=== PATIENT | female | born 1980 ===

== ENCOUNTER 2023-12-09 14:37 | Inpatient (IN) | payer OTHER, SELFPAY ==
[2023-12-08 21:32] VITALS: BP 108/80
--- NOTE | 2023-12-08 23:48 | ED.GENMED ---
History of Present Illness
General
Chief Complaint: Withdrawal Symptoms
Source: patient and family (Mother)
Exam Limitations: none
Time Seen by Provider: 12/08/23 22:56
Nursing documentation reviewed up to this point in time: agreed with
Travel History
Have you had any contact with someone who has COVID-19?: No
Do you have any symptoms of coronavirus? Fever > 100 degrees, chills, cough, shortness of breath, sore throat, loss of taste or smell, muscle aches, or headache?: No
History of Present Illness
History of Present Illness:
43-year-old female with a past medical history of opioid abuse who presents to the emergency department for evaluation of 'opioid withdrawal'--mother says that she brought patient here for rehab and to have her pelvis evaluated. Patient is an
extremely poor historian. Her mother�who I was able to speak with on the phone�does help with some collateral history (Mimi, ). [facility]�it sounds like she is currently homeless although it sounds like at some point
she may have been staying with her mother. It sounds like patient had some sort of an injury to her pelvis or hip that required surgery at [facility]--patient says that she thinks that this happened about a month ago but cannot tell me exactly what her
injury was or the specific type of surgery. She has a history of opioid abuse but apparently had been on methadone maintenance therapy at [address] in [place]. According the patient's mother, patient relapsed last week
and was on the street using fentanyl. Patient says that after that she had difficulty getting access to her methadone again and she cannot tell me exactly why. She says that she believes she is now going through opioid withdrawal. There was a
bizarre story in triage about patient being locked in a closet�when asked about this, the patient could not provide any clarity, she only tells me that she thinks she withdrawing. She tells me that her main withdrawal symptom is 'pain.' She feels
some mild nausea. She has not had any vomiting and she has been in the emergency room for over 2-1/2 hours. She has not had any diarrhea. She does not appear diaphoretic. She is actually sleeping and I had to shake her to wake her up when I
entered the room. Her mother says that the main concern in bring her to the hospital was #1 to have her pelvis evaluated because patient has been walking on it when she was supposed to rest after surgery; #2 mother was hoping that she could be
evaluated for potential placement in rehab.
Review of Systems
Review of Systems
All Other Systems: ROS reviewed and negative except as documented in HPI and ROS
Constitutional: Reports chills; Denies fever
EENT: Denies sore throat or runny nose
Respiratory: Denies cough or trouble breathing
ABD/GI: Reports nausea; Denies abdominal pain, vomiting or diarrhea
: Denies flank pain
Musculoskeletal: Reports muscle pain (Body aches); Denies neck pain
Neurological: Denies headache, weakness or numbness
Phy Exam
Physical Exam
Physical Exam:
General: Patient is sleeping in bed comfortably; I had to shake her awake to speak with her; she is oriented x 3, she appears disheveled but nontoxic
Head: Normocephalic, atraumatic
Eyes: Conjunctiva normal, EOMI; pupils midrange, equal round and reactive to light bilaterally
Nose: No rhinorrhea
Throat: Airway intact, handling secretions
Neck: Trachea midline
Lungs: Clear to auscultation bilaterally, no wheezing, rales, rhonchi
Heart: Tachycardia with regular rhythm, no murmurs, gallops, or rubs
Abd: Soft, non distended, nontender; she has a well-healed surgical scar in the suprapubic region
Neuro: No gross deficits
Skin: No piloerection
Extremities: No edema in extremities, equal pulses in all extremities
Scores
COW Clinical Opiate Withdrawal Scale
Resting Pulse Rate: 101-120
Sweating-over past 30min not from room temp or activity: Reports chills or flushing
Restlessness-observation during assessment: Able to sit still
Pupil Size: Pupils pinned or normal size for room light
Bone or Joint Aches: Patient reports severe diffuse aching of joints/muscles
Runny Nose or Tearing-not accounted for by cold/allergies: Not present
GI Upset-over last 30min: Nausea or loose stool
Tremor-observation of outstretched hands: No tremor
Yawning-observation during assessment: No yawning
Anxiety or Irritability: Pt so irritable/anxious that participation in assessment is difficult
Gooseflesh Skin: Skin is smooth
Score: 11
Withdrawal Severity: Mild Withdrawal, consider starting Suboxone
Heart Failure Risk
Heart Failure Risk Score: Not Applicable
Heart Score for Chest Pain Patients
STEMI patient?: Not applicable
Withdrawal Assessment of Alcohol
Withdrawal Assessment Completed?: Not applicable
Course
Orders/Labs/Results
Orders:
Orders
12/08/23 23:37
0.9% Sodium Chloride 1000 ml [Nss] 1,000 ml IV BOLUS
Ondansetron Injectable [Zofran] 4 mg IV NOW STA
12/08/23 23:42
Drug Screen, Urine [Urine Drug Abuse Screen] Urgent
Clonidine [Catapres] 0.1 mg PO NOW STA
Test Result ONCE
12/08/23 23:52
Complete Blood Count/With Diff Urgent
Comprehensive Metabolic Panel Urgent
HCG, Serum Qualitative Screen Urgent
12/09/23 00:00
Electrocardiogram (*1) Urgent
Reason for Study: QTc Monitoring
EKG- Treatment ONCE
CR Pelvis Comp Min 3 Views Urgent
Reason For Exam: recent sx, hip pain
12/09/23 00:40
Methadone [Dolophine] 30 mg PO NOW STA
12/09/23 02:32
Case Management Consult ONCE
Case Management Consult: Discharge Planning
Abnormal Lab Results
12/08/23
23:52
RBC 3.71 L 10^6/uL
(4.20-5.40)
Hgb 9.8 L g/dL
(12.0-16.0)
Hct 28.6 L %
(37.0-47.0)
MCV 77.1 L fL
(81.0-99.0)
MCH 26.4 L pg
(27.0-31.0)
RDW 14.7 H %
(11.5-14.5)
Potassium 3.4 L mmol/L
(3.5-5.1)
Creatinine 0.4 L mg/dL
(0.6-1.0)
Glucose 101 H mg/dl
(70-99)
AST 56 H U/L
(14-36)
Alkaline Phosphatase 145 H U/L
(38-126)
12/08/23 23:52
12/08/23 23:52
Vital Signs
Initial and Last Documented VS:
Initial Vital Signs
Temp Pulse Resp BP Pulse Ox
36.1 C 104 24 108/80 100
12/08/23 21:32 12/08/23 21:32 12/08/23 21:32 12/08/23 21:32 12/08/23 21:32
Last Documented Vital Signs
Temp Pulse Resp BP Pulse Ox
36.8 C 101 16 107/59 99
12/09/23 01:43 12/09/23 01:43 12/09/23 01:43 12/09/23 01:43 12/09/23 01:43
MDM/Problems Addressed
Differential Diagnosis Includes:
Opioid withdrawal, dehydration, postoperative pain/complication, malingering/drug-seeking behavior
MDM/Problems Addressed:
43-year-old female with history of opioid use presents to the emergency room mainly for evaluation for placement in rehab according to her mother, also requesting assessment of her pelvis after recent surgery and quicker than advised return to
activity. Patient tells me that she believes she is in opioid withdrawal�it sounds like she was on methadone and receiving at a clinic and then relapsed and was using fentanyl last week. Has not been able to get her methadone since and now she
says she is in withdrawal although she is not clearly exhibiting withdrawal syndrome�while she does have anxiety and restlessness in bed when awake, when left alone in the room she falls asleep comfortably. She does have tachycardia but again when
left alone in the room she falls asleep and heart rate returns to normal. She reports nausea but has not had any vomiting and is requesting food and drink. She has not had any diarrhea throughout her ED stay. She has no rhinorrhea. She has no
yawning. She has no piloerection. She does complain of pain all over and in fact when we wake her up, she immediately cries that she is in pain and that she needs medication.
I had a long discussion with her mother she says that she thinks patient needs rehab. This is a very difficult case; patient initially said she was interested in rehab and so I spoke with our [facility] associate who did an evaluation and patient
declined rehab. He says that he has seen her 4 times in the past and each time she has declined rehab. I had a long discussion with the patient to see how I can help her. We did do basic blood work which was largely unremarkable�she has mild
anemia mild hypokalemia. We did an x-ray of the pelvis which on my review shows intact hardware with no clear bony disruption. Her main concern is her methadone because she believes she is withdrawing and if she cannot had her methadone she wants
another opiate. I explained to the patient that unless we are able to confirm her dose of methadone our pharmacy cannot release the medication. I placed a call to her methadone clinic and was unable to get an answer x 3 attempts to confirm the
dose. I offered to treat her with Suboxone but patient refuses this�she says that she is allergic to it. I offered to provide her some Narcan to keep with her but she says she is allergic to it. For her pain I offered her Tylenol and ibuprofen or
Toradol and she tells me she is allergic to all these things. I spoke to our pharmacist about this difficult situation and apparently they are able to release a 30 mg dose of methadone without confirmation and so after discussion with patient we
will proceed with this. I also gave her a dose of clonidine. Initially planned to treat with Zofran but she has a borderline QTc on EKG and given that we are also giving her some methadone we will hold off on additional QT prolonging agents. Will
provide some IV hydration. Will monitor here in the emergency room and reassess after the above.
Clinical reassessment patient is sleeping comfortably in the bed is not in any distress at all. Her vital signs are normal. Continue to monitor.
Patient continues to rest comfortably in bed she is not exhibiting any signs of withdrawal at this point in time. I think she is medically stable to be discharged however she is homeless and she says that she does not have anywhere to go. Will
plan to observe in ED overnight and have nurse outreach case manager see her in the morning. She is medically stable for discharge. We provided her a take-home kit of Narcan.
Chronic conditions affecting care:
Opioid use
*Radiology
Radiology exam reviewed: preliminary read by ED provider
*Pulse Oximetry
Patient hypoxic: no
*EKG
Interpreted by ED Provider?: Yes
Heart Rate: 99
Rate: normal
Rhythm: sinus
[place]: normal axis
Interval: long QT (Slight prolonged QT interval)
QRS Pattern: normal QRS
Ischemia: non-specific ST changes
*Critical Care Note
Total Time (30-74mins, 75-104mins- exclusive of procedures): Not Applicable
Data Reviewed
Source: patient and family (Mother)
Patient Management
Social determinants of health affecting care: Living situation and Substance abuse
Discussion with other providers: Other (Spoke with KENNEDY)
ED Attending Note
-
Portions of this chart may have been created with voice recognition software.� Occasional wrong word or��sound alike� substitutions may have occurred due to the inherent limitations of voice recognition software.
Discharge Plan
Departure
Admit to doctor: FAWN TO SEE IN AM
Patient with high blood pressure during this ER visit?: No
Discharge Problem:
Opioid withdrawal, Anemia, Hypokalemia
Instructions: Drug Misuse and Addiction (DC)
Activity Restrictions/Additional Instructions:
Thank you for visiting the Emergency Department at [facility].
1. Please schedule a follow up appointment as directed. Call first thing tomorrow morning to make an appointment.
2. If indicated, please take your medications as instructed and indicated on discharge paperwork.
3. If any of your symptoms do not improve, or persist, or become more severe within 6-12 hours, please return to the emergency department for further care.
4. Please return to the emergency department if you develop a headache, neck pain/stiffness, fever greater than 100.4F, chest pain, shortness of breath, persistent nausea, vomiting, slurred speech, difficulty walking, numbness/tingling, weakness,
signs of infection or any other symptoms that are worrisome to you.
Please call [phone] if you have any questions.
Interventions
Interventions:
*Risk Screen - Suicide Last Done: 12/09/23 00:10
*General Assessment Last Done: 12/09/23 00:10
*Neglect/Abuse Screening Last Done: 12/09/23 00:10
*ED COVID-19 Vaccine History Last Done: 12/09/23 00:10
Discharge Date and Time
Print Language: MOSOTHO
[2023-12-08] MEDS: NSS 1000 IV (23:50)
[2023-12-08 23:59] LABS: % Basophils 0.5 % (0-2); % Eosinophils 3.1 % (0-6); % Immature Granulocytes 0.3 % (0-0.5); % Lymphocytes 30.2 % (20.5-51.1); % Monocytes 8.9 % (1.7-9.3); Absolute Eosinophils 0.2 10^3/uL (0-0.7); Absolute Lymphocytes 1.9 10^3/uL (1.2-3.4); Absolute Monocytes 0.6 10^3/uL (0.1-0.6); Absolute Neutrophils 3.5 10^3/uL (1.4-6.5); Hematocrit 28.6 % (37.0-47.0); Hemoglobin 9.8 g/dL (12.0-16.0); Mean Corp Hgb Conc. 34.3 g/dL (33.0-37.0); Mean Corpuscular Hgb 26.4 pg (27.0-31.0); Mean Corpuscular Volume 77.1 fL (81.0-99.0); Mean Platelet Volume 9.3 fL (7.4-10.4); Nucleated Red Blood Cells % 0 %; Platelet Count 363 10^3/uL (130-400); Red Blood Cell Count 3.71 10^6/uL (4.20-5.40); Red Cell Dist. Width 14.7 % (11.5-14.5); White Blood Cell Count 6.2 10^3/uL (4.8-10.8)
[2023-12-09] VITALS (14 sets, daily range): BP systolic 82–121; BP diastolic 43–78
[2023-12-09 00:09] LABS: HCG, Serum Qualitative Screen Negative
[2023-12-09 00:15] LABS: ALT (SGPT) 22 U/L (0-35); AST (SGOT) 56 U/L (14-36); Albumin 3.7 g/dl (3.5-5.0); Alkaline Phosphatase 145 U/L (38-126); Blood Urea Nitrogen 13 mg/dl (7-17); Calcium 9.4 mg/dl (8.4-10.2); Carbon Dioxide 24 mmol/L (22-30); Chloride 104 mmol/L (98-107); Glucose 101 mg/dl (70-99); Potassium 3.4 mmol/L (3.5-5.1); Sodium 138 mmol/L (135-145); Total Bilirubin 0.7 mg/dl (0.2-1.3); Total Protein 7.8 g/dl (6.3-8.2); eGFR > 60.00
[2023-12-09] MEDS: CATAPRES 0.100000000000000006 MG PO (00:56)
[2023-12-09] MEDS: DOLOPHINE 30 MG PO (01:02)
--- NOTE | 2023-12-09 09:45 | CM ---
Addendum entered by Sharyn Jones 12/09/23 15:21:
Patient also provided with information on shelters.
Addendum entered by Sharyn Jones 12/09/23 10:06:
residence manager spoke with [facility] and Julius from [facility] will meet with patient at 11am this morning.
Original Note:
Chart reviewed and casework manager met with patient, per patient she was brought to [place] by her mother who is requesting treatment, case management review treatment options with patient and referral to [facility] was initiated, patient was seen by
KENNEDY and patient initially refused treatment, casework manager met patient and patient is now agreeable to treatment, casework manager reached out to [facility].
Plan; Referral sent to [facility].
--- NOTE | 2023-12-09 11:42 | PHANOTE ---
Contacted [facility] [[address]] to obtain medication information. An authorization to release medical records form was faxed to [phone] to allow information to be released.
[2023-12-09 12:47] LABS: Amphetamines Positive (Negative)
[2023-12-09 12:48] LABS: Benzodiazepines Positive (Negative); Marijuana Positive (Negative); Methadone Positive (Negative); Methamphetamines Positive (Negative)
[2023-12-09 12:52] LABS: Barbiturates Negative (Negative); Buprenorphine Negative (Negative); Cocaine Negative (Negative); Opiates Negative (Negative); Phencyclidine Negative (Negative); Tricyclic Antidepressants Negative (Negative)
[2023-12-09 13:13] LABS: Fentanyl, Urine Positive (Negative)
--- NOTE | 2023-12-09 13:35 | PHANOTE ---
Fax received from the [facility] verifying that the patient received Methadone 190mg on 12/02/23 at 11:30am at the clinic.
--- NOTE | 2023-12-09 13:53 | HPS.HSE ---
Addendum entered and electronically signed by Gary Lemus MD 12/09/23 15:02:
I saw and examined the patient.
The STATION[employer]ER FIREMAN or PA's note was reviewed and I agree with the note.
Comment: 43-year-old female with IV drug user, anxiety, GERD, medical hernia, recent left acetabular fracture, T12 compression fracture came to the hospital for possibility of withdrawal. Patient is homeless and has not been able to take care of
herself. Patient was brought in by his mother. I tried calling mother over the phone however could not leave voicemail since it is full. Per patient she has been taking Klonopin along with fentanyl and other opioids no the street. She also goes
to methadone clinic in [facility] where she went 3 days ago. Patient was recently hospitalized at [facility] in September after a fall with left acetabular fracture. She underwent ORIF by orthopedics. Later on patient decided
to leave AGAINST MEDICAL ADVICE. Currently patient vitals does not show she is tachycardic. IV Ativan given in ED. Will start as needed Ativan for now. Confirm methadone. Consult psychiatry. Patient is now interested in going to drug rehab.
General: Well Developed, Well Nourished and No Apparent Distress
HEENT: NormoCephalic, Moist mucous membranes and Atraumatic
Respiratory: Clear
Cardiac: S1/S2 and Regular Rhythm; No Murmur or Rub
GI: Soft, Non Tender, Non Distended and Normal Bowel Sounds; No Organomegaly
Rectal: Deferred by Provider
Musculoskeletal: No Clubbing, No Cyanosis and No Edema
Skin: No Rash
Neuro: AO x 3 and Nonfocal/grossly intact
Psych: Calm
I spent a total of 77 minutes with the patient or on the floor. More than 50% of this time involved counseling and coordination of care.
Original Note:
Family Physician
-
Family Physician:
Chief Complaint
-
withdrawal
History of Present Illness
43 year old with past medical history for withdrawal seizure presented to us with left thigh pain, can't walk on her left leg since the surgery. she recently had left acetabular fracture, left sup/inf rami fracture/vertebral body compression
fracture and scalp laceration from a fall. she Underwent ORIF left acetabulum at [facility]. Patient denied any headache dizziness, fever. Patient is chills. Patient denied headache, dizziness, syncopal episode patient denied abdominal
pain, nausea vomiting diarrhea. She is denying dysuria, hematuria. Patient has history of drug abuse since age of 18. Recently she was on methadone maintenance therapy at [facility]. She was staying with her mother. She left the house as she
could not take the argument with her mother. She relapsed last week. She last took Benzo and fentanyl 2 days ago.
Medical History
Past Medical History
Past Medical History: Reports Other
Additional Past Medical History:
seizure
Past Surgical History: Reports Other
Additional Past Surgical History:
spinal surgery
let hip surgery
Social History
Tobacco: Smoker (5-6 ciggrettes daily)
Alcohol: None
Drug: IVDA
Living: Homeless
Family History
Family History: Not pertinent
Allergies / Home Medications
Allergies reflects when Allergies were last updated in [employer].
Home Medications with original date entered in [employer]
Allergy/Medication List:
Allergies
Allergy/AdvReac Type Severity Reaction Status Date / Time
No Known Allergies Allergy Verified 12/08/23 21:35
Home Medications
methadone 10 mg/mL injection solution 190 mg SC DAILY 12/09/23
Review of Systems
-
Constitutional: Reports Chills
EENT: Reports No Symptoms
Respiratory: Reports No Symptoms
Cardiac: Reports No Symptoms
Abdomen/GI: Reports No Symptoms
: Reports No Symptoms
Musculoskeletal: Reports Other (right thigh, hip pain)
Skin: Reports No Symptoms
Neurological: Reports No Symptoms
Endocrine: Reports No Symptoms
Hematologic/Lymphatic: Reports No Symptoms
Psych: Reports No Symptoms
Physical Exam
Vital Signs
Vital Signs
Temp Pulse Resp BP Pulse Ox
98.3 F 98 20 102/54 100
12/09/23 01:43 12/09/23 11:41 12/09/23 11:41 12/09/23 13:00 12/09/23 11:56
Physical Exam
General: Well Developed, Well Nourished and No Apparent Distress
HEENT: NormoCephalic, Moist mucous membranes and Atraumatic
Respiratory: Clear
Cardiac: S1/S2 and Regular Rhythm; No Murmur or Rub
GI: Soft, Non Tender, Non Distended and Normal Bowel Sounds; No Organomegaly
Rectal: Deferred by Provider
Musculoskeletal: No Clubbing, No Cyanosis and No Edema
Skin: No Rash
Neuro: AO x 3 and Nonfocal/grossly intact
Psych: Calm
Laboratory Results
-
12/08/23 23:52
12/08/23 23:52
Laboratory Results
Total Bilirubin 0.7 mg/dl (0.2-1.3) 12/08/23 23:52
AST 56 U/L (14-36) H 12/08/23 23:52
ALT 22 U/L (0-35) 12/08/23 23:52
Alkaline Phosphatase 145 U/L (38-126) H 12/08/23 23:52
Data Reviewed
-
Diagnostic Radiology: Report Reviewed by me
Lab Data: Labs Reviewed by me
Impression/Plan
-
# Benzodiazepine/opiate withdrawal
-Withdrawal protocol initiated
-methadone continued
-Psych consulted
# Anemia likely post op
-Hemoglobin 9.8
-No active bleeding
-obtain iron panel, B12, ferritin, TIBC
#left hip/thigh pain
#recent left acetabular fracture, left sup/inf rami fracture/vertebral body compression fracture and scalp laceration.
-Underwent ORIF left acetabulum
-lidocaine continued
-Tylenol prn for pain
-PT consulted
# Hypokalemia
-K3.4
-Oral KCl
#DVT Prophylaxis
-Lovenox
#CODE status
-full code
[2023-12-09] MEDS: ATIVAN 2 MG IV (14:00)
--- NOTE | 2023-12-09 15:02 | W.PN.UPDATE ---
Update Note
Progress Note Update
For billing purposes only
[2023-12-09 15:15] LABS: Iron 33 ug/dl (37-170); Percent Saturation 11 % (20-50); Total Iron Binding Capacity 292 ug/dl (265-497)
[2023-12-09 15:57] LABS: Ferritin 77.2 ng/ml (6.24-137)
[2023-12-09] MEDS: METHADONE 100 MG/10 ML 190 MG PO (16:10)
[2023-12-09] MEDS: KCL ELIXIR 40 MEQ PO (16:10)
[2023-12-09 16:29] LABS: Folate > 20.0 ng/ml (2.76-20); Vitamin B12 984 pg/ml (239-931)
--- NOTE | 2023-12-09 17:00 | PTCARENOTE ---
Patient arrived from ED on stretcher. While assisting patient with getting undressed and into a new gown, this RN discovered what appeared to be illicit drugs in a small ziplock baggie underneath patient's left breast. Immediately confiscated baggie
and notified Nurse Store Leader and Security.
Security to bedside to check patient's belongings.
--- NOTE | 2023-12-09 17:15 | CS.PSYCHR ---
Consult Summary - Psychiatry
-
Pt is 43 yo female with IV drug use, hx of withdrawal seizure, GERD, recent left acetabular fracture, T12 compression fracture, who was reportedly brought to ED by her mother for possibility of substance withdrawal. Patient is reportedly homeless
and stated she has been taking Klonopin along with fentanyl on the street. She goes to a methadone clinic in [facility] at '[address]', reportedly was there 3 days ago. Pt reportedly relapsed last week. UDS positive for
Methadone, Fentanyl, Methamphetamine/Amphetamine, Benzo, THC. Pt noted to be interested in drug rehab.
PMH: Patient was recently hospitalized at [facility] in September after a fall with left acetabular fracture. She underwent ORIF, then later left AMA, noted not able to bear weight on her left leg.
Substance Use: Hx of drug abuse since age of 18. Previously on Suboxone maintenance until Jul 2023. Recently on methadone maintenance therapy at [facility].
SH: homeless, was staying with her mother, left the house after an argument; relapsed last week.
MSE: lying on side on stretcher, limited interaction, unkempt, sedated, repeatedly nodding off. Pt states she is here due to withdrawal sx, denies other mental health concerns.
Imp: Opioid Use d/o, severe, relapse to Fentanyl despite Methadone maint tx
Methamphetamine, Benzo, MJ Use
Rec: agree with continuing on confirmed Methadone Maint dose for now, with Ativan 0.5 mg prn, monitoring for possible benzo withdrawal
referral to drug rehab when medically stable
will follow loosely
--- NOTE | 2023-12-09 18:15 | PTCARENOTE ---
At this time, unable to complete admission assessment. Patient lethargic, continues to fall back asleep while this RN is speaking to her. Multiple times to re-focus patient are unsuccessful.
[2023-12-09] MEDS: LIDOCAINE 4% PATCH 1 PATCH TOPICAL (18:17)
[2023-12-09] MEDS: NARCAN 0.0400000000000000008 MG IV (19:29)
--- NOTE | 2023-12-09 19:34 | W.PN.UPDATE ---
Update Note
Progress Note Update
Called to see patient post incident involving nursing finding an unknown substance in her bra after being transferred to the floor from her bed in ED. Police notified and substance taken by them to be identified. VSS but she appears very lethargic
although able to give me a long history of events prior to arrival here. Narcan ordered since substance is unknown. Assessment is ongoing. She is monitored on telemetry.
[2023-12-09] MEDS: NSS (PRESERVATIVE FREE) 0.25 ML IV (20:03)
[2023-12-09] MEDS: ATIVAN 0.5 MG IV (20:03)
--- NOTE | 2023-12-09 20:05 | PTCARENOTE ---
At change of shift, pt extremely lethargic and only opening eyes to pain stimuli. BP 100/65, HR 69, respirations 10-12, 96% on RA, afebrile. WALKER Castillo notified and asked to come to see pt. Pt now answering questions appropriately but still very
lethargic. WALKER Castillo ordered Narcan, given as ordered. Pt now screaming that she is in pain and states 'why did they narcan me?'. WALKER notified. PRN ativan given as ordered (see mar). Pt's BP 121/64, HR 89, 100% RA, respirations 16. Plan of care
ongoing.
[2023-12-10 03:00] VITALS: BP 105/64
--- NOTE | 2023-12-10 06:08 | PTCARENOTE ---
Addendum entered by Dayana Barajas RN 12/10/23 06:14:
no adverse reactions noted after narcan administration.
Original Note:
This RN woke pt up this AM to toilet her. Pt stated 'I'm fucking allergic to narcan' and 'don't you ever fucking narcan me again'. Pt stated 'Ill alejandro the balls off this hospital' and 'I don't know what you found but it wasn't mine'. Tech and this RN
attempted to toilet and clean pt up. Pt not steady on feet and unable to ambulate to bathroom. BSC used but pt refusing to urinate. Pt refused to clean self up or let staff clean her up. Pt very drowsy throughout this RN's shift. Bed alarm in place
and call quiles within reach. Plan of care ongoing.
[2023-12-10] MEDS: ATIVAN 0.5 MG IV (06:37)
[2023-12-10] MEDS: NSS (PRESERVATIVE FREE) 0.25 ML IV (06:37)
[2023-12-10 07:00] VITALS: BP 92/60
[2023-12-10] MEDS: LIDOCAINE 4% PATCH 1 PATCH TOPICAL (07:49)
[2023-12-10 08:56] LABS: Hematocrit 27.9 % (37.0-47.0); Hemoglobin 9.2 g/dL (12.0-16.0); Mean Corpuscular Hgb 26.4 pg (27.0-31.0); Mean Corpuscular Volume 80.2 fL (81.0-99.0); Mean Platelet Volume 9.3 fL (7.4-10.4); Platelet Count 367 10^3/uL (130-400); Red Blood Cell Count 3.48 10^6/uL (4.20-5.40); Red Cell Dist. Width 15.1 % (11.5-14.5); White Blood Cell Count 3.8 10^3/uL (4.8-10.8)
[2023-12-10 09:24] LABS: ALT (SGPT) 19 U/L (0-35); AST (SGOT) 35 U/L (14-36); Albumin 3.1 g/dl (3.5-5.0); Alkaline Phosphatase 127 U/L (38-126); Blood Urea Nitrogen 10 mg/dl (7-17); Calcium 9.1 mg/dl (8.4-10.2); Carbon Dioxide 27 mmol/L (22-30); Chloride 106 mmol/L (98-107); Direct Bilirubin 0.3 mg/dl (0.0-0.4); Glucose 92 mg/dl (70-99); Potassium 3.7 mmol/L (3.5-5.1); Sodium 139 mmol/L (135-145); Total Bilirubin 0.3 mg/dl (0.2-1.3); Total Protein 6.7 g/dl (6.3-8.2); eGFR > 60.00
[2023-12-10] MEDS: NSS 1000 IV (09:43)
[2023-12-10] MEDS: METHADONE 100 MG/10 ML 190 MG PO (10:45)
[2023-12-10 11:00] VITALS: BP 92/59
--- NOTE | 2023-12-10 12:34 | W.PN.HOSP.TC ---
Today's Communication/Plan
-
Monitor vital signs see plan
Continue to monitor for withdrawal; symptoms improved from what i can see. would need to wean benzos
PT/OT
Interested in going to drug rehab
Assessment / Plan
Assessment / Plan
General: Well Developed, Well Nourished and No Apparent Distress
HEENT: NormoCephalic, Moist mucous membranes and Atraumatic
Respiratory: Clear
Cardiac: S1/S2 and Regular Rhythm; No Murmur or Rub
GI: Soft, Non Tender, Non Distended and Normal Bowel Sounds; No Organomegaly
Musculoskeletal: No Clubbing, No Cyanosis and No Edema
Neuro: AO x 3 and Nonfocal/grossly intact
Psych: Calm
Multidrug use with abuse
Suspect benzodiazepine withdrawal
Possible opiate withdrawal
cw COWS protocol
ativan prn
methadone dose confirmed; cw methadone
Patient is interested in going to drug rehab.
Psych following
UDS positive for methadone, fentanyl, amphetamine, methamphetamine, benzodiazepine, marijuana
narcan prn
# Anemia; iron deficient
likely 2/2 malnutrition
-Hemoglobin 9.8
-No active bleeding
#left hip/thigh pain
#recent left acetabular fracture, left sup/inf rami fracture/vertebral body compression fracture and scalp laceration. was hospitalized at [facility]
-Underwent ORIF left acetabulum in september 2023
Patient to follow-up with orthopedics outpatient
records requested
-lidocaine continued
-Tylenol prn for pain
-PT consulted
# Hypokalemia
improved
#DVT Prophylaxis
-Lovenox
#CODE status
-full code
Anticipated Discharge: 24 - 48 hours
Subjective/Interval History
-
Date of Service: December 10, 2023
denies headache
Objective Data
-
Labs:
Laboratory Results
05/21/24
08:32
WBC 3.8 L
Hgb 9.2 L
Hct 27.9 L
Plt Count 367
Sodium 139
Potassium 3.7
Chloride 106
Carbon Dioxide 27
BUN 10
Creatinine 0.4 L
Glucose 92
Calcium 9.1
Total Bilirubin 0.3
AST 35
ALT 19
Alkaline Phosphatase 127 H
Vital Signs:
Vital Signs
Temp Pulse Resp BP Pulse Ox
98.6 F 89 18 92/59 95
12/10/23 11:00 12/10/23 11:00 12/10/23 11:00 12/10/23 11:00 12/10/23 11:00
I&O
12/09/23 12/10/23 12/11/23
06:59 06:59 06:59
Intake Total 480 / 480
Output Total 0 / 0
Balance 480 / 480
[2023-12-10] MEDS: MIRALAX 17 GRAMS PO (13:02)
[2023-12-10] MEDS: FEOSOL 325 MG PO (13:02)
--- NOTE | 2023-12-10 14:22 | W.PN.UPDATE ---
Update Note
Progress Note Update
Pt seen, lying on side. Awake, alert, limited interaction. Pt denies depression or other active mental health issue. She c/o benzo withdrawal (shakes), gives vague history of taking Klonopin/ or 'bars' (Xanax?) obtained on the street once per
day. Reviewed with nursing staff, who reports pt's BP and pulse are actually low-to- normal. Pt has prn order for Ativan 0.5 mg, has received twice. Pt has been continued on confirmed Methadone Maint dose 190 mg, from Methadone program in
[place].
Imp: Opioid Use d/o, severe, on Methadone maint tx. Pt missed doses and relapsed on Fentanyl
Methamphetamine, Benzo, MJ Use
Rec: agree with continuing on confirmed Methadone Maint dose, with Ativan 0.5 mg prn, monitoring for possible benzo withdrawal
Pt appears stable to return to Outpatient Methadone Maint Program. Residential drug rehab may be an option, depending on funding and availability of the limited facilities that accept patients on Methadone
Psychiatry will sign off. Please re-consult for any new or immediate concerns
--- NOTE | 2023-12-10 14:47 | CM ---
Case management following for d/c planning
Pt sleeping, difficult to arouse
Falling asleep while speaking with CM
Would like to go to Rehab
Called [facility] [phone] - spoke with Julius
Clinicals faxed to [phone]
Plan - anticipate inpatient drug rehab when medically stable
[2023-12-10 15:34] VITALS: BP 108/70
[2023-12-10 19:39] VITALS: BP 116/67
[2023-12-10 23:06] VITALS: BP 114/77
[2023-12-11] VITALS (8 sets, daily range): BP systolic 92–128; BP diastolic 53–84; PULSE 75–78; O2SAT 93–95
--- NOTE | 2023-12-11 04:03 | PTCARENOTE ---
Patient lethargic, only wakes when her vitals are taken and at that time continually asks for Ativan. This RN explained that since patient is lethargic and has a lower BP it is contraindicated at this time. Patient showing no signs of withdrawal
other then being agitated and cursing at staff. Heart rate 70, BP 92/59. No sweating observed. Patient angry that she is not getting Ativan and yells 'fuck you, you are gonna let me fucking suffer'. Patient yells 'I am in pain'. This RN offered
patient Tylenol and patient became irate, stating that the Tylenol 'won't do shit dumb ass'. At that time this RN left patients room and notified WALKER Bonilla of above. Per WALKER patient can not have Ativan with her BP being low and with her
mentation. Patient to receive scheduled Methadone 190mg at 0800. Care ongoing.
[2023-12-11] MEDS: LIDOCAINE 4% PATCH 1 PATCH TOPICAL (08:27)
[2023-12-11] MEDS: FEOSOL 325 MG PO (08:27)
[2023-12-11] MEDS: METHADONE 100 MG/10 ML 190 MG PO (08:28)
[2023-12-11] MEDS: MIRALAX 17 GRAMS PO (08:28)
--- NOTE | 2023-12-11 09:59 | PHANOTE ---
Contacted [facility] [address] [address] at [phone] and spoke to LOLY Avelar to request methadone dosing history at the request of Dr Lemus. Required another patient consent be sent. Patient signed consent today and faxed to
[phone].
[2023-12-11 10:08] LABS: % Basophils 2.1 % (0-2); % Eosinophils 9.9 % (0-6); % Lymphocytes 40.6 % (20.5-51.1); % Monocytes 12.4 % (1.7-9.3); Absolute Basophils 0.1 10^3/uL (0-0.2); Absolute Eosinophils 0.3 10^3/uL (0-0.7); Absolute Lymphocytes 1.2 10^3/uL (1.2-3.4); Absolute Monocytes 0.4 10^3/uL (0.1-0.6); Hematocrit 30.1 % (37.0-47.0); Hemoglobin 9.8 g/dL (12.0-16.0); Mean Corp Hgb Conc. 32.6 g/dL (33.0-37.0); Mean Corpuscular Hgb 25.9 pg (27.0-31.0); Mean Corpuscular Volume 79.4 fL (81.0-99.0); Nucleated Red Blood Cells % 0 %; Red Blood Cell Count 3.79 10^6/uL (4.20-5.40); Red Cell Dist. Width 14.7 % (11.5-14.5); White Blood Cell Count 2.8 10^3/uL (4.8-10.8)
[2023-12-11 10:35] LABS: ALT (SGPT) 24 U/L (0-35); AST (SGOT) 37 U/L (14-36); Albumin 3.1 g/dl (3.5-5.0); Alkaline Phosphatase 118 U/L (38-126); Blood Urea Nitrogen 9 mg/dl (7-17); Calcium 8.8 mg/dl (8.4-10.2); Carbon Dioxide 31 mmol/L (22-30); Chloride 102 mmol/L (98-107); Estimated Creatinine Clearance 98 ml/min; Glucose 107 mg/dl (70-99); Potassium 4.3 mmol/L (3.5-5.1); Sodium 139 mmol/L (135-145); Total Bilirubin 0.2 mg/dl (0.2-1.3); Total Protein 6.8 g/dl (6.3-8.2); eGFR > 60.00
[2023-12-11 12:25] LABS: Mean Platelet Volume 9.8 fL (7.4-10.4)
[2023-12-11 12:26] LABS: Platelet Count 280 10^3/uL (130-400)
--- NOTE | 2023-12-11 12:31 | W.PN.HOSP.TC ---
Today's Communication/Plan
-
monitor vitals
see plan
monitor for withdrawal
dispo planning; would need rehab
methadone; might need to lower dose. awaiting outpatient clinic records per pharmacy
Assessment / Plan
Assessment / Plan
General: Well Developed, Well Nourished and No Apparent Distress
HEENT: NormoCephalic, Moist mucous membranes and Atraumatic
Respiratory: Clear
Cardiac: S1/S2 and Regular Rhythm; No Murmur or Rub
GI: Soft, Non Tender, Non Distended and Normal Bowel Sounds; No Organomegaly
Musculoskeletal: No Edema
Neuro: AO x 3 and Nonfocal/grossly intact,lethargic at times
Psych: Calm
Multidrug use with abuse
Suspect benzodiazepine withdrawal
Possible opiate withdrawal on admission now on methadone
cw COWS protocol
ativan prn; hold for sedation and only use if patient is actively withdrawing
methadone dose confirmed; cw methadone. Pharmacy assistance to find out when her methadone was increased to 190. Multiple instances staff has noted patient too sedated or lethargic at times. Would need psych assistance to see if we need to wean her
methadone if this dose is recently increased
Patient is interested in going to drug rehab.
Psych following
UDS positive for methadone, fentanyl, amphetamine, methamphetamine, benzodiazepine, marijuana
narcan prn
# Anemia; iron deficient
likely 2/2 malnutrition
-Hemoglobin 9.8
-No active bleeding
#left hip/thigh pain
#recent left acetabular fracture, left sup/inf rami fracture/vertebral body compression fracture and scalp laceration. [facility]
-Underwent ORIF left acetabulum in september 2023
Patient to follow-up with orthopedics outpatient
records requested
-lidocaine continued
-Tylenol prn for pain
-PT consulted
# Hypokalemia
improved
#DVT Prophylaxis
-Lovenox
#CODE status
-full code
I spent a total of 52 minutes with the patient or on the floor. More than 50% of this time involved counseling and coordination of care.
Anticipated Discharge: Within 24 hours
Subjective/Interval History
-
Date of Service: December 11, 2023
lethargic at times
Objective Data
-
Labs:
Laboratory Results
12/11/23
09:51
WBC 2.8 L
Hgb 9.8 L
Hct 30.1 L
Plt Count 280 D
Sodium 139
Potassium 4.3
Chloride 102
Carbon Dioxide 31 H
BUN 9
Creatinine 0.4 L
Glucose 107 H
Calcium 8.8
Total Bilirubin 0.2
AST 37 H
ALT 24
Alkaline Phosphatase 118
Vital Signs:
Vital Signs
Temp Pulse Resp BP Pulse Ox
97.7 F 76 16 122/84 99
12/11/23 11:25 12/11/23 11:25 12/11/23 11:25 12/11/23 11:25 12/11/23 11:25
I&O
12/10/23 12/11/23 12/12/23
06:59 06:59 06:59
Intake Total 480 / 480 482 / 482
Output Total 0 / 0
Balance 480 / 480 482 / 482
--- NOTE | 2023-12-11 13:54 | CM ---
Case management following for d/c planning
Called [facility] [phone] - spoke with Julius
Julius reports he will be coming to hospital today to speak with pt and discuss treatment options/inpatient rehab with her
Requested PT/OT notes. Clinicals faxed to [phone]
Plan - anticipate transfer to inpatient drug rehab, when accepted and medically ready
[2023-12-11] MEDS: ATIVAN 0.5 MG IV (20:20)
[2023-12-11] MEDS: NSS (PRESERVATIVE FREE) 0.25 ML IV (20:21)
[2023-12-12] VITALS (8 sets, daily range): BP systolic 100–117; BP diastolic 53–76; PULSE 76; O2SAT 95
[2023-12-12] MEDS: ATIVAN 0.5 MG IV ×2 (01:31→10:04)
[2023-12-12] MEDS: NSS (PRESERVATIVE FREE) 0.25 ML IV (01:32)
[2023-12-12] MEDS: FEOSOL 325 MG PO (08:04)
[2023-12-12] MEDS: MIRALAX 17 GRAMS PO (08:04)
[2023-12-12] MEDS: METHADONE 100 MG/10 ML PO ×2 (08:04→12:20)
[2023-12-12] MEDS: LIDOCAINE 4% PATCH 1 PATCH TOPICAL (08:05)
[2023-12-12 11:26] LABS: % Basophils 1.2 % (0-2); % Eosinophils 12.5 % (0-6); % Immature Granulocytes 0.3 % (0-0.5); % Lymphocytes 40.9 % (20.5-51.1); % Monocytes 12.5 % (1.7-9.3); % Neutrophils 32.6 % (42.2-75.2); Absolute Eosinophils 0.4 10^3/uL (0-0.7); Absolute Lymphocytes 1.4 10^3/uL (1.2-3.4); Absolute Monocytes 0.4 10^3/uL (0.1-0.6); Absolute Neutrophils 1.1 10^3/uL (1.4-6.5); Hematocrit 31.2 % (37.0-47.0); Hemoglobin 9.7 g/dL (12.0-16.0); Mean Corp Hgb Conc. 31.1 g/dL (33.0-37.0); Mean Corpuscular Hgb 26.1 pg (27.0-31.0); Mean Corpuscular Volume 83.9 fL (81.0-99.0); Mean Platelet Volume 9.4 fL (7.4-10.4); Nucleated Red Blood Cells % 0 %; Platelet Count 360 10^3/uL (130-400); Red Blood Cell Count 3.72 10^6/uL (4.20-5.40); Red Cell Dist. Width 14.8 % (11.5-14.5); White Blood Cell Count 3.4 10^3/uL (4.8-10.8)
[2023-12-12 11:37] LABS: ALT (SGPT) 22 U/L (0-35); AST (SGOT) 31 U/L (14-36); Albumin 3.4 g/dl (3.5-5.0); Alkaline Phosphatase 128 U/L (38-126); Blood Urea Nitrogen 11 mg/dl (7-17); Calcium 9.4 mg/dl (8.4-10.2); Carbon Dioxide 30 mmol/L (22-30); Chloride 99 mmol/L (98-107); Estimated Creatinine Clearance 98 ml/min; Glucose 101 mg/dl (70-99); Potassium 4.4 mmol/L (3.5-5.1); Sodium 137 mmol/L (135-145); Total Bilirubin 0.2 mg/dl (0.2-1.3); Total Protein 7.3 g/dl (6.3-8.2); eGFR > 60.00
--- NOTE | 2023-12-12 12:18 | PTCARENOTE ---
Pt due for 90mg methadone. At this moment, patient appearing sedated, opens eyes to tactile stimulation but quickly closes after, sleeping heavily. VS checked and stable. MD notified of sedation and holding methadone dose. Pt arose to painful
stimulation calmly asking to order lunch and watch a movie.
--- NOTE | 2023-12-12 13:13 | W.PN.HOSP.TC ---
Today's Communication/Plan
-
monitor vitals
see plan
dc IV ativan; switch to PO only if needed
monitor on changed methadone regimen
dc in next 24hrs if stable
Assessment / Plan
Assessment / Plan
General: Well Developed, Well Nourished and No Apparent Distress
HEENT: NormoCephalic, Moist mucous membranes and Atraumatic
Respiratory: Clear
Cardiac: S1/S2 and Regular Rhythm; No Murmur or Rub
GI: Soft, Non Tender, Non Distended and Normal Bowel Sounds; No Organomegaly
Musculoskeletal: No Edema
Neuro: AO x 3 and Nonfocal/grossly intact,lethargic at times
Psych: Calm
Multidrug use with abuse
Suspect benzodiazepine withdrawal
Possible opiate withdrawal on admission now on methadone
cw COWS protocol
ativan prn; hold for sedation and only use if patient is actively withdrawing
methadone dose confirmed; cw methadone. Pharmacy assistance to find out when her methadone was increased to 190. Multiple instances staff has noted patient too sedated or lethargic at times. Would need psych assistance to see if we need to wean her
methadone if this dose is recently increased
spoke with pharmacy and psych. Methadone now 100mg in am and 90mg in afternoon (only if patient is not sedated)
Patient is interested in going to drug rehab.
Psych following
UDS positive for methadone, fentanyl, amphetamine, methamphetamine, benzodiazepine, marijuana
narcan prn
# Anemia; iron deficient
likely 2/2 malnutrition
-Hemoglobin 9.7
-No active bleeding
#left hip/thigh pain
#recent left acetabular fracture, left sup/inf rami fracture/vertebral body compression fracture and scalp laceration. was hospitalized at [facility]
-Underwent ORIF left acetabulum in september 2023
Patient to follow-up with orthopedics outpatient
records requested
-lidocaine continued
-Tylenol prn for pain
-PT following rec SNF; patient refusing
patient is now WBAT
# Hypokalemia
improved
#DVT Prophylaxis
-Lovenox
#CODE status
-full code
Anticipated Discharge: Within 24 hours
Subjective/Interval History
-
Date of Service: December 12, 2023
denies nausea
Objective Data
-
Labs:
Laboratory Results
12/12/23
10:53
WBC 3.4 L
Hgb 9.7 L
Hct 31.2 L
Plt Count 360 D
Sodium 137
Potassium 4.4
Chloride 99
Carbon Dioxide 30
BUN 11
Creatinine 0.5 L
Glucose 101 H
Calcium 9.4
Total Bilirubin 0.2
AST 31
ALT 22
Alkaline Phosphatase 128 H
Vital Signs:
Vital Signs
Temp Pulse Resp BP Pulse Ox
98.0 F 78 14 108/71 99
12/12/23 11:00 12/12/23 12:18 12/12/23 12:18 12/12/23 12:18 12/12/23 12:18
I&O
12/11/23 12/12/23 12/13/23
06:59 06:59 06:59
Intake Total 482 / 482 1080 / 1080
Output Total 500 / 500
Balance 482 / 482 580 / 580
--- NOTE | 2023-12-12 14:43 | CM ---
sales and production manager following for d/c planning
Called Julius from [facility] for updates regarding placement - LM on VM
Waiting for return call
Plan - anticipate inpatient rehab when medically ready
--- NOTE | 2023-12-12 15:16 | PN.CDI ---
CDI
- -
CDI:
Physician Documentation Request
Admit Date: 12/09/23 14:37
Dear Doctor Allan,
Clinical Indicators:
Patient admitted with suspected benzodiazepine withdrawal.
Home medications include methadone 190 mg SC daily
12/11 PN, 'Multidrug use with abuse -Possible opiate withdrawal on admission now on methadone'
Please specify the pattern of opiate use:
Abuse with dependence
Abuse without dependence
Other, please specify
Use of terms such as suspected, likely, concern for, or probable (associated with a specific diagnosis that is being evaluated, monitored, or treated as if it exists) are acceptable and can be coded in the inpatient setting, when documented at the
time of discharge.
Thank you,
WAN Gillespie RN
CDI Specialist
available via tiger text
Please use your independent medical judgment in providing your response.
[2023-12-12] MEDS: ATIVAN 0.5 MG PO (18:30)
[2023-12-13] VITALS (7 sets, daily range): BP systolic 90–121; BP diastolic 57–69; PULSE 71; O2SAT 98
[2023-12-13] MEDS: ATIVAN 0.5 MG PO ×4 (02:30→20:39)
[2023-12-13] MEDS: METHADONE 100 MG/10 ML PO (08:16)
[2023-12-13] MEDS: FEOSOL 325 MG PO (08:17)
[2023-12-13] MEDS: MIRALAX 17 GRAMS PO (08:17)
[2023-12-13] MEDS: LIDOCAINE 4% PATCH 1 PATCH TOPICAL (08:17)
[2023-12-13] MEDS: TYLENOL 650 MG PO (08:24)
--- NOTE | 2023-12-13 10:30 | CM ---
Addendum entered by Ai Juan 12/13/23 15:55:
Spoke with Julius from [facility] - will send updated PT/OT notes - pt would need to be independent to be accepted at rehab
Clinicals faxed to [phone]
Original Note:
Case management following for d/c planning
Methadone dose changed
Spoke with pt - more alert - expressing desire to go to rehab to 'get and feel better'
Called [facility] [phone] - spoke with account services representative - Julius will be in office and will return call this PM
Plan - anticipate inpatient rehab when medically stable
--- NOTE | 2023-12-13 11:59 | W.PN.HOSP.TC ---
Today's Communication/Plan
-
monitor vitals
see plan
cw methadone
change ativan to PO as needed
dc planning
Assessment / Plan
Assessment / Plan
General: Well Developed, Well Nourished and No Apparent Distress
HEENT: NormoCephalic, Moist mucous membranes and Atraumatic
Respiratory: Clear
Cardiac: S1/S2 and Regular Rhythm; No Murmur or Rub
GI: Soft, Non Tender, Non Distended and Normal Bowel Sounds
Musculoskeletal: No Edema
Neuro: AO x 3 and Nonfocal/grossly intact,lethargic at times
Psych: Calm
Multidrug use with abuse
Opioid use with abuse and dependance
Suspect benzodiazepine withdrawal; now resolved
Possible opiate withdrawal on admission now on methadone
cw COWS protocol
ativan prn; hold for sedation and only use if patient is actively withdrawing
methadone dose confirmed; cw methadone. Pharmacy assistance to find out when her methadone was increased to 190. Multiple instances staff has noted patient too sedated or lethargic at times. Would need psych assistance to see if we need to wean her
methadone if this dose is recently increased
spoke with pharmacy and psych. Methadone now 100mg in am and 90mg in afternoon (only if patient is not sedated)
Patient is interested in going to drug rehab.
Psych following
UDS positive for methadone, fentanyl, amphetamine, methamphetamine, benzodiazepine, marijuana
narcan prn
Patient is not in benzodiazepine withdrawal as there are no signs of it. Will change Ativan to oral every 12 hours as needed for anxiety however hold for sedation.
# Anemia; iron deficient
likely 2/2 malnutrition
-Hemoglobin 9.7, labs pending for today
-No active bleeding
#left hip/thigh pain
#recent left acetabular fracture, left sup/inf rami fracture/vertebral body compression fracture and scalp laceration. was hospitalized at [facility]
-Underwent ORIF left acetabulum in september 2023
Patient to follow-up with orthopedics outpatient
records requested
-lidocaine continued
-Tylenol prn for pain
-PT following rec SNF; patient refusing
patient is now WBAT
xray with posttraumatic and post operative changes. No clear acute fracture.
# Hypokalemia
improved
#DVT Prophylaxis
-Lovenox
#CODE status
-full code
Anticipated Discharge: Within 24 hours
Subjective/Interval History
-
Date of Service: December 13, 2023
denies nausea
Objective Data
-
Labs:
Laboratory Results
12/13/23
06:00
WBC Pending
Hgb Pending
Hct Pending
Plt Count Pending
Sodium Pending
Potassium Pending
Chloride Pending
Carbon Dioxide Pending
BUN Pending
Creatinine Pending
Glucose Pending
Calcium Pending
Total Bilirubin Pending
AST Pending
ALT Pending
Alkaline Phosphatase Pending
Vital Signs:
Vital Signs
Temp Pulse Resp BP Pulse Ox
98.3 F 73 16 105/65 99
12/13/23 11:11 12/13/23 11:11 12/13/23 11:11 12/13/23 11:11 12/13/23 11:11
I&O
12/12/23 12/13/23 12/14/23
06:59 06:59 06:59
Intake Total 1080 / 1080 960 / 960
Output Total 500 / 500
Balance 580 / 580 960 / 960
[2023-12-13] MEDS: METHADONE 100 MG/10 ML 90 MG PO (12:02)
[2023-12-13 19:21] LABS: % Basophils 0.7 % (0-2); % Eosinophils 9.1 % (0-6); % Immature Granulocytes 0.2 % (0-0.5); % Lymphocytes 48.6 % (20.5-51.1); % Monocytes 10.6 % (1.7-9.3); % Neutrophils 30.8 % (42.2-75.2); Absolute Eosinophils 0.4 10^3/uL (0-0.7); Absolute Lymphocytes 2.2 10^3/uL (1.2-3.4); Absolute Monocytes 0.5 10^3/uL (0.1-0.6); Absolute Neutrophils 1.4 10^3/uL (1.4-6.5); Hematocrit 32.1 % (37.0-47.0); Hemoglobin 10.4 g/dL (12.0-16.0); Mean Corp Hgb Conc. 32.4 g/dL (33.0-37.0); Mean Corpuscular Hgb 26.1 pg (27.0-31.0); Mean Corpuscular Volume 80.5 fL (81.0-99.0); Mean Platelet Volume 8.9 fL (7.4-10.4); Nucleated Red Blood Cells % 0 %; Platelet Count 403 10^3/uL (130-400); Red Blood Cell Count 3.99 10^6/uL (4.20-5.40); Red Cell Dist. Width 14.7 % (11.5-14.5); White Blood Cell Count 4.5 10^3/uL (4.8-10.8)
[2023-12-13 19:46] LABS: ALT (SGPT) 21 U/L (0-35); AST (SGOT) 24 U/L (14-36); Albumin 3.8 g/dl (3.5-5.0); Alkaline Phosphatase 137 U/L (38-126); Blood Urea Nitrogen 12 mg/dl (7-17); Calcium 9.4 mg/dl (8.4-10.2); Carbon Dioxide 32 mmol/L (22-30); Estimated Creatinine Clearance 98 ml/min; Glucose 94 mg/dl (70-99); Total Bilirubin 0.2 mg/dl (0.2-1.3); eGFR > 60.00
[2023-12-13 20:17] LABS: Chloride 98 mmol/L (98-107); Potassium 4.3 mmol/L (3.5-5.1); Sodium 138 mmol/L (135-145)
[2023-12-13] MEDS: MELATONIN 3 MG PO (20:48)
[2023-12-14 03:27] VITALS: BP 108/67
[2023-12-14 07:15] VITALS: BP 87/56
[2023-12-14] MEDS: LIDOCAINE 4% PATCH 1 PATCH TOPICAL (07:51)
[2023-12-14] MEDS: FEOSOL 325 MG PO (07:51)
[2023-12-14] MEDS: MIRALAX 17 GRAMS PO (07:52)
[2023-12-14] MEDS: METHADONE 100 MG/10 ML PO (07:55)
[2023-12-14] MEDS: ATIVAN 0.5 MG PO ×2 (09:30→21:43)
[2023-12-14 09:34] LABS: % Basophils 0.7 % (0-2); % Eosinophils 9.5 % (0-6); % Immature Granulocytes 0.2 % (0-0.5); % Lymphocytes 43.4 % (20.5-51.1); % Monocytes 10.4 % (1.7-9.3); % Neutrophils 35.8 % (42.2-75.2); Absolute Eosinophils 0.4 10^3/uL (0-0.7); Absolute Monocytes 0.5 10^3/uL (0.1-0.6); Absolute Neutrophils 1.6 10^3/uL (1.4-6.5); Hematocrit 30.7 % (37.0-47.0); Mean Corp Hgb Conc. 32.6 g/dL (33.0-37.0); Mean Corpuscular Hgb 26.2 pg (27.0-31.0); Mean Corpuscular Volume 80.6 fL (81.0-99.0); Mean Platelet Volume 9.1 fL (7.4-10.4); Nucleated Red Blood Cells % 0 %; Platelet Count 385 10^3/uL (130-400); Red Blood Cell Count 3.81 10^6/uL (4.20-5.40); Red Cell Dist. Width 14.7 % (11.5-14.5); White Blood Cell Count 4.5 10^3/uL (4.8-10.8)
[2023-12-14 09:52] LABS: ALT (SGPT) 17 U/L (0-35); AST (SGOT) 22 U/L (14-36); Albumin 3.7 g/dl (3.5-5.0); Alkaline Phosphatase 130 U/L (38-126); Blood Urea Nitrogen 15 mg/dl (7-17); Calcium 9.7 mg/dl (8.4-10.2); Carbon Dioxide 28 mmol/L (22-30); Chloride 99 mmol/L (98-107); Estimated Creatinine Clearance 98 ml/min; Glucose 100 mg/dl (70-99); Potassium 4.6 mmol/L (3.5-5.1); Sodium 136 mmol/L (135-145); Total Bilirubin 0.3 mg/dl (0.2-1.3); Total Protein 7.8 g/dl (6.3-8.2); eGFR > 60.00
[2023-12-14 11:06] VITALS: BP 109/63
[2023-12-14] MEDS: METHADONE 100 MG/10 ML 90 MG PO (11:55)
--- NOTE | 2023-12-14 12:08 | W.PN.HOSP.TC ---
Today's Communication/Plan
-
monitor vitals
see plan
cw methadone
ativan PO prn
dispo planning
Assessment / Plan
Assessment / Plan
General: Well Developed, Well Nourished and No Apparent Distress
HEENT: NormoCephalic, Moist mucous membranes and Atraumatic
Respiratory: Clear
Cardiac: S1/S2 and Regular Rhythm; No Murmur or Rub
GI: Soft, Non Tender, Non Distended and Normal Bowel Sounds
Musculoskeletal: No Edema
Neuro: AO x 3 and Nonfocal/grossly intact,lethargic at times
Psych: Calm
Multidrug use with abuse
Opioid use with abuse and dependance
Suspect benzodiazepine withdrawal; now resolved
Possible opiate withdrawal on admission now on methadone
cw COWS protocol
ativan prn; hold for sedation and only use if patient is actively withdrawing
methadone dose confirmed; cw methadone. Pharmacy assistance to find out when her methadone was increased to 190. Multiple instances staff has noted patient too sedated or lethargic at times. Would need psych assistance to see if we need to wean her
methadone if this dose is recently increased
spoke with pharmacy and psych. Methadone now 100mg in am and 90mg in afternoon (only if patient is not sedated)
Patient is interested in going to drug rehab.
Psych following
UDS positive for methadone, fentanyl, amphetamine, methamphetamine, benzodiazepine, marijuana
narcan prn
Patient is not in benzodiazepine withdrawal as there are no signs of it. Will change Ativan to oral every 12 hours as needed for anxiety however hold for sedation.
# Anemia; iron deficient
likely 2/2 malnutrition
-Hemoglobin 10, labs pending for today
-No active bleeding
#left hip/thigh pain
#recent left acetabular fracture, left sup/inf rami fracture/vertebral body compression fracture and scalp laceration. was hospitalized at [facility]
-Underwent ORIF left acetabulum in september 2023
Patient to follow-up with orthopedics outpatient
records requested
-lidocaine continued
-Tylenol prn for pain
-PT following rec SNF; patient refusing
patient is now WBAT
xray with posttraumatic and post operative changes. No clear acute fracture.
# Hypokalemia
improved
#DVT Prophylaxis
-Lovenox
#CODE status
-full code
Per special education case manager, patient needs to be independent for the drug rehab. Patient is claiming that she is independently walking with a walker to the bathroom
Anticipated Discharge: Within 24 hours
Subjective/Interval History
-
Date of Service: December 14, 2023
denies nausea
Objective Data
-
Labs:
Laboratory Results
12/14/23
09:05
WBC 4.5 L
Hgb 10.0 L
Hct 30.7 L
Plt Count 385
Sodium 136
Potassium 4.6
Chloride 99
Carbon Dioxide 28
BUN 15
Creatinine 0.5 L
Glucose 100 H
Calcium 9.7
Total Bilirubin 0.3
AST 22
ALT 17
Alkaline Phosphatase 130 H
Vital Signs:
Vital Signs
Temp Pulse Resp BP Pulse Ox
98.0 F 72 17 109/63 95
12/14/23 11:06 12/14/23 11:06 12/14/23 11:06 12/14/23 11:06 12/14/23 11:06
I&O
12/13/23 12/14/23 12/15/23
06:59 06:59 06:59
Intake Total 960 / 960 1200 / 1200
Balance 960 / 960 1200 / 1200
[2023-12-14 15:28] VITALS: BP 110/66
[2023-12-14 19:53] VITALS: BP 96/58
[2023-12-14] MEDS: MELATONIN 3 MG PO (21:43)
[2023-12-14 23:23] VITALS: BP 96/63
[2023-12-15] VITALS (7 sets, daily range): BP systolic 94–132; BP diastolic 47–64; PULSE 82
[2023-12-15 05:29] LABS: % Eosinophils 8.3 % (0-6); % Immature Granulocytes 0.4 % (0-0.5); % Lymphocytes 46.4 % (20.5-51.1); % Monocytes 11.9 % (1.7-9.3); Absolute Basophils 0.1 10^3/uL (0-0.2); Absolute Eosinophils 0.4 10^3/uL (0-0.7); Absolute Lymphocytes 2.3 10^3/uL (1.2-3.4); Absolute Monocytes 0.6 10^3/uL (0.1-0.6); Absolute Neutrophils 1.6 10^3/uL (1.4-6.5); Hematocrit 33.4 % (37.0-47.0); Hemoglobin 10.5 g/dL (12.0-16.0); Mean Corp Hgb Conc. 31.4 g/dL (33.0-37.0); Mean Corpuscular Hgb 26.4 pg (27.0-31.0); Mean Corpuscular Volume 83.9 fL (81.0-99.0); Nucleated Red Blood Cells % 0 %; Platelet Count 368 10^3/uL (130-400); Red Blood Cell Count 3.98 10^6/uL (4.20-5.40); Red Cell Dist. Width 14.8 % (11.5-14.5); White Blood Cell Count 4.9 10^3/uL (4.8-10.8)
[2023-12-15 05:53] LABS: ALT (SGPT) 16 U/L (0-35); AST (SGOT) 21 U/L (14-36); Albumin 3.7 g/dl (3.5-5.0); Alkaline Phosphatase 135 U/L (38-126); Blood Urea Nitrogen 17 mg/dl (7-17); Calcium 9.9 mg/dl (8.4-10.2); Carbon Dioxide 30 mmol/L (22-30); Chloride 99 mmol/L (98-107); Estimated Creatinine Clearance 98 ml/min; Glucose 88 mg/dl (70-99); Potassium 4.7 mmol/L (3.5-5.1); Sodium 140 mmol/L (135-145); Total Bilirubin 0.2 mg/dl (0.2-1.3); Total Protein 7.8 g/dl (6.3-8.2); eGFR > 60.00
[2023-12-15] MEDS: METHADONE 100 MG/10 ML PO (08:08)
[2023-12-15] MEDS: FEOSOL 325 MG PO (08:08)
[2023-12-15] MEDS: LIDOCAINE 4% PATCH 1 PATCH TOPICAL (08:08)
[2023-12-15] MEDS: MIRALAX 17 GRAMS PO (08:09)
[2023-12-15] MEDS: ATIVAN 0.5 MG PO ×2 (09:45→22:17)
--- NOTE | 2023-12-15 11:55 | W.PN.HOSP.TC ---
Today's Communication/Plan
-
monitor vitals
see plan
cw methadone
ativan
dc planning ongoing
Assessment / Plan
Assessment / Plan
General: Well Developed, Well Nourished and No Apparent Distress
HEENT: NormoCephalic, Moist mucous membranes and Atraumatic
Respiratory: Clear
Cardiac: S1/S2 and Regular Rhythm; No Murmur or Rub
GI: Soft, Non Tender, Non Distended and Normal Bowel Sounds
Musculoskeletal: No Edema
Neuro: AO x 3 and Nonfocal/grossly intact,lethargic at times
Psych: Calm
Multidrug use with abuse
Opioid use with abuse and dependance
Suspect benzodiazepine withdrawal; now resolved
Possible opiate withdrawal on admission now on methadone
cw COWS protocol
ativan prn; hold for sedation and only use if patient is actively withdrawing
methadone dose confirmed; cw methadone. Pharmacy assistance to find out when her methadone was increased to 190. Multiple instances staff has noted patient too sedated or lethargic at times. Would need psych assistance to see if we need to wean her
methadone if this dose is recently increased
spoke with pharmacy and psych. Methadone now 100mg in am and 90mg in afternoon (only if patient is not sedated)
Patient is interested in going to drug rehab.
Psych following
UDS positive for methadone, fentanyl, amphetamine, methamphetamine, benzodiazepine, marijuana
narcan prn
Patient is not in benzodiazepine withdrawal as there are no signs of it. Will change Ativan to oral every 12 hours as needed for anxiety however hold for sedation.
# Anemia; iron deficient
likely 2/2 malnutrition
-Hemoglobin 10, labs pending for today
-No active bleeding
#left hip/thigh pain
#recent left acetabular fracture, left sup/inf rami fracture/vertebral body compression fracture and scalp laceration. was hospitalized at [facility]
-Underwent ORIF left acetabulum in september 2023
Patient to follow-up with orthopedics outpatient
records requested
-lidocaine continued
-Tylenol prn for pain
-PT following rec SNF; patient refusing
patient is now WBAT
xray with posttraumatic and post operative changes. No clear acute fracture.
# Hypokalemia
improved
#DVT Prophylaxis
-Lovenox
#CODE status
-full code
Per branch services manager, patient needs to be independent for the drug rehab. Patient is claiming that she is independently walking with a walker to the bathroom
BCARES involved
Anticipated Discharge: 24 - 48 hours
Subjective/Interval History
-
Date of Service: December 15, 2023
denies nausea
Objective Data
-
Labs:
Laboratory Results
12/15/23
05:02
WBC 4.9
Hgb 10.5 L
Hct 33.4 L
Plt Count 368
Sodium 140
Potassium 4.7
Chloride 99
Carbon Dioxide 30
BUN 17
Creatinine 0.6
Glucose 88
Calcium 9.9
Total Bilirubin 0.2
AST 21
ALT 16
Alkaline Phosphatase 135 H
Vital Signs:
Vital Signs
Temp Pulse Resp BP Pulse Ox
97.8 F 72 19 94/53 99
12/15/23 11:00 12/15/23 11:00 12/15/23 11:00 12/15/23 11:00 12/15/23 11:00
I&O
12/14/23 12/15/23 12/16/23
06:59 06:59 06:59
Intake Total 1200 / 1200 1080 / 1080
Balance 1200 / 1200 1080 / 1080
--- NOTE | 2023-12-15 12:05 | CM ---
Addendum entered by Merry Carmona 12/15/23 13:10:
Per PT, Patient still requires Supervision with transfers, bed mobility, and ambulation w/walker.
PT/OT recommends continued therapy to address her left hip at the [facility] but these facilities do not support that need.
SAM prefers to wait to place until patient demonstrates independence
Addendum entered by Merry Carmona 12/15/23 12:21:
SAM also needs Medication Administration Record faxed
Original Note:
Requested PT/OT to re-evaluate patient today
Will fax PT/OT notes to [facility] #[phone] when available on the chart
Plan: pending outcome of PT/OT re-evaluation, [facility] will be able to move forward with Rehab placement
[2023-12-15] MEDS: METHADONE 100 MG/10 ML 90 MG PO (12:06)
[2023-12-15] MEDS: DULCOLAX 10 MG RECTAL (13:21)
[2023-12-15] MEDS: COLACE 100 MG PO ×2 (13:21→22:14)
[2023-12-15] MEDS: MELATONIN 3 MG PO (22:13)
[2023-12-16 03:46] VITALS: BP 100/51
[2023-12-16 07:00] VITALS: BP 95/55
[2023-12-16] MEDS: MIRALAX 17 GRAMS PO (07:28)
[2023-12-16] MEDS: LIDOCAINE 4% PATCH 1 PATCH TOPICAL (07:28)
[2023-12-16] MEDS: METHADONE 100 MG/10 ML PO (07:29)
[2023-12-16] MEDS: FEOSOL 325 MG PO (07:29)
[2023-12-16] MEDS: COLACE 100 MG PO ×2 (07:29→22:28)
[2023-12-16 09:14] LABS: % Basophils 0.8 % (0-2); % Eosinophils 7.6 % (0-6); % Immature Granulocytes 0.2 % (0-0.5); % Lymphocytes 42.9 % (20.5-51.1); % Monocytes 12.7 % (1.7-9.3); % Neutrophils 35.8 % (42.2-75.2); Absolute Eosinophils 0.4 10^3/uL (0-0.7); Absolute Lymphocytes 2.1 10^3/uL (1.2-3.4); Absolute Monocytes 0.6 10^3/uL (0.1-0.6); Absolute Neutrophils 1.7 10^3/uL (1.4-6.5); Hematocrit 33.3 % (37.0-47.0); Hemoglobin 10.6 g/dL (12.0-16.0); Mean Corp Hgb Conc. 31.8 g/dL (33.0-37.0); Mean Corpuscular Hgb 26.2 pg (27.0-31.0); Mean Corpuscular Volume 82.2 fL (81.0-99.0); Mean Platelet Volume 9.3 fL (7.4-10.4); Nucleated Red Blood Cells % 0 %; Platelet Count 327 10^3/uL (130-400); Red Blood Cell Count 4.05 10^6/uL (4.20-5.40); Red Cell Dist. Width 14.7 % (11.5-14.5); White Blood Cell Count 4.9 10^3/uL (4.8-10.8)
[2023-12-16 09:30] LABS: ALT (SGPT) 17 U/L (0-35); AST (SGOT) 21 U/L (14-36); Albumin 3.7 g/dl (3.5-5.0); Alkaline Phosphatase 124 U/L (38-126); Blood Urea Nitrogen 22 mg/dl (7-17); Calcium 9.6 mg/dl (8.4-10.2); Carbon Dioxide 31 mmol/L (22-30); Chloride 99 mmol/L (98-107); Estimated Creatinine Clearance 98 ml/min; Glucose 88 mg/dl (70-99); Potassium 4.6 mmol/L (3.5-5.1); Sodium 138 mmol/L (135-145); Total Bilirubin 0.2 mg/dl (0.2-1.3); Total Protein 7.9 g/dl (6.3-8.2); eGFR > 60.00
[2023-12-16 11:00] VITALS: BP 98/55
[2023-12-16] MEDS: ATIVAN 0.5 MG PO (11:09)
[2023-12-16] MEDS: METHADONE 100 MG/10 ML 90 MG PO (11:09)
--- NOTE | 2023-12-16 11:09 | W.PN.HOSP.TC ---
Today's Communication/Plan
-
monitor vitals
see plan
pt/ot
cw methadone,ativan
DC planning
Assessment / Plan
Assessment / Plan
General: Well Developed, Well Nourished and No Apparent Distress
HEENT: NormoCephalic, Moist mucous membranes and Atraumatic
Respiratory: Clear
Cardiac: S1/S2 and Regular Rhythm; No Murmur or Rub
GI: Soft, Non Tender, Non Distended and Normal Bowel Sounds
Musculoskeletal: No Edema
Neuro: AO x 3 and Nonfocal/grossly intact,lethargic at times
Psych: Calm
Multidrug use with abuse
Opioid use with abuse and dependance
Suspect benzodiazepine withdrawal; now resolved
Possible opiate withdrawal on admission now on methadone
cw COWS protocol
ativan prn; hold for sedation and only use if patient is actively withdrawing
methadone dose confirmed; cw methadone. Pharmacy assistance to find out when her methadone was increased to 190. Multiple instances staff has noted patient too sedated or lethargic at times. Would need psych assistance to see if we need to wean her
methadone if this dose is recently increased
spoke with pharmacy and psych. Methadone now 100mg in am and 90mg in afternoon (only if patient is not sedated)
Patient is interested in going to drug rehab.
Psych following
UDS positive for methadone, fentanyl, amphetamine, methamphetamine, benzodiazepine, marijuana
narcan prn
Patient is not in benzodiazepine withdrawal as there are no signs of it. Will change Ativan to oral every 12 hours as needed for anxiety however hold for sedation.
# Anemia; iron deficient
likely 2/2 malnutrition
-Hemoglobin 10.6
-No active bleeding
#left hip/thigh pain
#recent left acetabular fracture, left sup/inf rami fracture/vertebral body compression fracture and scalp laceration. was hospitalized at [facility]
-Underwent ORIF left acetabulum in september 2023
Patient to follow-up with orthopedics outpatient
records requested
-lidocaine continued
-Tylenol prn for pain
-PT following rec SNF; patient refusing
patient is now WBAT
xray with posttraumatic and post operative changes. No clear acute fracture.
# Hypokalemia
improved
#DVT Prophylaxis
-Lovenox
#CODE status
-full code
Per window caser, patient needs to be independent for the drug rehab. Patient is claiming that she is independently walking with a walker to the bathroom
[facility] involved
Patient is medically cleared and can be discharged. CM made aware
Anticipated Discharge: Within 24 hours
Subjective/Interval History
-
Date of Service: December 16, 2023
denies nausea
Objective Data
-
Labs:
Laboratory Results
12/16/23
08:55
WBC 4.9
Hgb 10.6 L
Hct 33.3 L
Plt Count 327
Sodium 138
Potassium 4.6
Chloride 99
Carbon Dioxide 31 H
BUN 22 H
Creatinine 0.5 L
Glucose 88
Calcium 9.6
Total Bilirubin 0.2
AST 21
ALT 17
Alkaline Phosphatase 124
Vital Signs:
Vital Signs
Temp Pulse Resp BP Pulse Ox
98.0 F 73 18 95/55 95
12/16/23 07:00 12/16/23 07:00 12/16/23 07:00 12/16/23 07:00 12/16/23 07:00
I&O
12/15/23 12/16/23 12/17/23
06:59 06:59 06:59
Intake Total 1080 / 1080 1680 / 1680
Balance 1080 / 1080 1680 / 1680
--- NOTE | 2023-12-16 11:39 | CM ---
Spoke with attending who requested update. Placed a call to [facility] and spoke with Julius, who stated that he just needs for patient to get a little more steady with PT, otherwise he will be unable to place her.
Spoke with Attending to update.
Plan: Case management will continue to follow and assist with discharge planning. Rehab when stable.
[2023-12-16 15:00] VITALS: BP 98/57
[2023-12-16 19:25] VITALS: BP 105/61
[2023-12-16] MEDS: MELATONIN PO (23:00)
[2023-12-16 23:24] VITALS: BP 117/63
--- NOTE | 2023-12-16 23:55 | PTCARENOTE ---
@2300;Pt drowsy, resp 12-14 /min.Awaken pt and pt asking for Ativan.Instructed pt that her respirations are too shallow/lethargic and no Ativan/Melatonin at this time.Assisted pt to BR w/RW.Gait impaired and requires x1 staff assistance.Pt voided
large amount yellow urine and assisted back to bed .Pt hungry and started to eat her dinner now.
[2023-12-17] VITALS (7 sets, daily range): BP systolic 96–124; BP diastolic 54–68
[2023-12-17] MEDS: MIRALAX 17 GRAMS PO (08:44)
[2023-12-17] MEDS: FEOSOL 325 MG PO (08:44)
[2023-12-17] MEDS: METHADONE 100 MG/10 ML PO (08:44)
[2023-12-17] MEDS: COLACE 100 MG PO ×2 (08:45→22:01)
[2023-12-17] MEDS: LIDOCAINE 4% PATCH TOPICAL (08:46)
--- NOTE | 2023-12-17 09:57 | W.PN.HOSP.TC ---
Today's Communication/Plan
-
monitor vitals
see plan
on methadone and ativan
dc planning; awaiting placement
Assessment / Plan
Assessment / Plan
General: Well Developed, Well Nourished and No Apparent Distress
HEENT: NormoCephalic, Moist mucous membranes and Atraumatic
Respiratory: Clear
Cardiac: S1/S2 and Regular Rhythm; No Murmur or Rub
GI: Soft, Non Tender, Non Distended and Normal Bowel Sounds
Musculoskeletal: No Edema
Neuro: AO x 3 and Nonfocal/grossly intact,lethargic at times
Psych: Calm
Multidrug use with abuse
Opioid use with abuse and dependance
Suspect benzodiazepine withdrawal; now resolved
Possible opiate withdrawal on admission now on methadone
cw COWS protocol
ativan prn; hold for sedation and only use if patient is actively withdrawing
methadone dose confirmed; cw methadone. Pharmacy assistance to find out when her methadone was increased to 190. Multiple instances staff has noted patient too sedated or lethargic at times. Would need psych assistance to see if we need to wean her
methadone if this dose is recently increased
spoke with pharmacy and psych. Methadone now 100mg in am and 90mg in afternoon (only if patient is not sedated)
Patient is interested in going to drug rehab.
Psych following
UDS positive for methadone, fentanyl, amphetamine, methamphetamine, benzodiazepine, marijuana
narcan prn
Patient is not in benzodiazepine withdrawal as there are no signs of it. Will change Ativan to oral every 12 hours as needed for anxiety however hold for sedation.
# Anemia; iron deficient
likely 2/2 malnutrition
-Hemoglobin 10.6
-No active bleeding
#left hip/thigh pain
#recent left acetabular fracture, left sup/inf rami fracture/vertebral body compression fracture and scalp laceration. was hospitalized at [facility]
-Underwent ORIF left acetabulum in september 2023
Patient to follow-up with orthopedics outpatient
records requested
-lidocaine continued
-Tylenol prn for pain
-PT following rec SNF; patient refusing
patient is now WBAT
xray with posttraumatic and post operative changes. No clear acute fracture.
# Hypokalemia
improved
#DVT Prophylaxis
-Lovenox
#CODE status
-full code
Per field case manager, patient needs to be independent for the drug rehab. Patient is claiming that she is independently walking with a walker to the bathroom
[facility] involved
Patient is medically cleared and can be discharged. CM made aware. [facility] want patient to be more independent before accepting. DC planning ongoing. cannot dc home as she is homeless
Anticipated Discharge: Today
Subjective/Interval History
-
Date of Service: December 17, 2023
denies nausea
Objective Data
-
Labs:
Laboratory Results
12/17/23
06:00
WBC Pending
Hgb Pending
Hct Pending
Plt Count Pending
Sodium Pending
Potassium Pending
Chloride Pending
Carbon Dioxide Pending
BUN Pending
Creatinine Pending
Glucose Pending
Calcium Pending
Total Bilirubin Pending
AST Pending
ALT Pending
Alkaline Phosphatase Pending
Vital Signs:
Vital Signs
Temp Pulse Resp BP Pulse Ox
98.0 F 66 18 96/54 98
12/17/23 07:00 12/17/23 07:00 12/17/23 07:00 12/17/23 07:00 12/17/23 07:00
I&O
12/16/23 12/17/23 12/18/23
06:59 06:59 06:59
Intake Total 1680 / 1680 690 / 690
Balance 1680 / 1680 690 / 690
--- NOTE | 2023-12-17 10:07 | CM ---
Case management following for d/c planning
PT/OT updates obtained
Called [facility] [phone] - spoke with Jaimie. Aware updates will be faxed to [facility]
Clinicals faxed to [phone]
Julius to return call
Per [facility] staff - pt needs to be able to ambulate without assit to go to inpatient rehab
[2023-12-17] MEDS: METHADONE 100 MG/10 ML 90 MG PO (11:16)
[2023-12-17] MEDS: ATIVAN 0.5 MG PO (14:02)
[2023-12-17] MEDS: TYLENOL 650 MG PO (17:57)
[2023-12-17] MEDS: MELATONIN 3 MG PO (22:01)
[2023-12-18] MEDS: ATIVAN 0.5 MG PO ×2 (02:49→14:56)
[2023-12-18 02:54] VITALS: BP 110/68
[2023-12-18 07:48] VITALS: BP 96/47
[2023-12-18] MEDS: COLACE 100 MG PO ×2 (08:46→21:04)
[2023-12-18] MEDS: MIRALAX 17 GRAMS PO (08:46)
[2023-12-18] MEDS: LIDOCAINE 4% PATCH 1 PATCH TOPICAL (08:46)
[2023-12-18] MEDS: FEOSOL 325 MG PO (08:46)
[2023-12-18] MEDS: METHADONE 100 MG/10 ML 190 MG PO (08:47)
--- NOTE | 2023-12-18 10:32 | W.PN.HOSP.TC ---
Today's Communication/Plan
-
monitor vitals
see plan
check pelvic xray
cw methadone,ativan
dc planning
Assessment / Plan
Assessment / Plan
General: Well Developed, Well Nourished and No Apparent Distress
HEENT: NormoCephalic, Moist mucous membranes and Atraumatic
Respiratory: Clear
Cardiac: S1/S2 and Regular Rhythm; No Murmur or Rub
GI: Soft, Non Tender, Non Distended and Normal Bowel Sounds
Musculoskeletal: No Edema
Neuro: AO x 3 and Nonfocal/grossly intact,lethargic at times
Psych: Calm
Multidrug use with abuse
Opioid use with abuse and dependance
Suspect benzodiazepine withdrawal; now resolved
Possible opiate withdrawal on admission now on methadone
ativan prn; hold for sedation
Methadone now back to 190 mg daily since patient is much more awake/alert
Patient is interested in going to drug rehab.
Psych signed off
UDS positive for methadone, fentanyl, amphetamine, methamphetamine, benzodiazepine, marijuana
narcan prn
Patient is not in benzodiazepine withdrawal as there are no signs of it. Will change Ativan to oral every 12 hours as needed for anxiety however hold for sedation.
# Anemia; iron deficient
likely 2/2 malnutrition
-Hemoglobin 10.6
-No active bleeding
#left hip/thigh pain
#recent left acetabular fracture, left sup/inf rami fracture/vertebral body compression fracture and scalp laceration. was hospitalized at [facility]
-Underwent ORIF left acetabulum in september 2023
Patient to follow-up with orthopedics outpatient
records requested;never got it
-lidocaine continued
-Tylenol prn for pain
-PT following rec SNF; patient refusing
patient is now WBAT
xray with posttraumatic and post operative changes. No clear acute fracture.
repeat xray 12/17
Patient to follow-up with orthopedics upon discharge. Dr. Brady Aquino from [facility]
# Hypokalemia
improved
#DVT Prophylaxis
-Lovenox
#CODE status
-full code
Per telehealth case manager, patient needs to be independent for the drug rehab. Patient is claiming that she is independently walking with a walker to the bathroom
[facility] involved
Patient is medically cleared and can be discharged. CM made aware. [facility] want patient to be more independent before accepting. DC planning ongoing. cannot dc home as she is homeless
Anticipated Discharge: Within 24 hours
Subjective/Interval History
-
Date of Service: December 18, 2023
has some pelvic pain
Objective Data
-
Labs:
Laboratory Results
12/17/23 12/18/23
06:00 06:00
WBC Cancelled Pending
Hgb Cancelled Pending
Hct Cancelled Pending
Plt Count Cancelled Pending
Sodium Pending
Potassium Pending
Chloride Pending
Carbon Dioxide Pending
BUN Pending
Creatinine Pending
Glucose Pending
Calcium Pending
Total Bilirubin Pending
AST Pending
ALT Pending
Alkaline Phosphatase Pending
Vital Signs:
Vital Signs
Temp Pulse Resp BP Pulse Ox
98.3 F 76 16 96/47 97
12/18/23 07:48 12/18/23 07:48 12/18/23 07:48 12/18/23 07:48 12/18/23 07:48
I&O
12/17/23 12/18/23 12/19/23
06:59 06:59 06:59
Intake Total 690 / 690 840 / 840
Balance 690 / 690 840 / 840
--- NOTE | 2023-12-18 12:53 | CM ---
Case management following for d/c planning
Chart reviewed and met with pt
Received call from Julius at [facility] - met with pt today. Pt requesting [facility] - Julius to send referral
Julius will contact CM and pt regarding referral acceptance
Plan - Inpatient drug rehab - pending acceptance - referral to be made
[2023-12-18] MEDS: DULCOLAX 10 MG RECTAL (14:37)
[2023-12-18 15:41] VITALS: BP 106/69
[2023-12-18 15:54] VITALS: BP 106/69; PULSE 82; O2SAT 96
[2023-12-18 19:25] VITALS: BP 99/56
[2023-12-18] MEDS: MELATONIN 3 MG PO (21:04)
[2023-12-18 23:10] VITALS: BP 142/77
[2023-12-19 03:31] VITALS: BP 101/56
[2023-12-19] MEDS: MIRALAX 17 GRAMS PO (07:33)
[2023-12-19] MEDS: COLACE 100 MG PO ×2 (07:34→22:01)
[2023-12-19] MEDS: METHADONE 100 MG/10 ML 190 MG PO (07:34)
[2023-12-19] MEDS: FEOSOL 325 MG PO (07:34)
[2023-12-19] MEDS: LIDOCAINE 4% PATCH 1 PATCH TOPICAL (07:34)
[2023-12-19 07:44] VITALS: BP 100/66
--- NOTE | 2023-12-19 09:18 | W.PN.HOSP.TC ---
Today's Communication/Plan
-
Patient remains medically stable for discharge to a drug rehab facility once available
Assessment / Plan
Assessment / Plan
General: Well Developed, Well Nourished and No Apparent Distress
HEENT: NormoCephalic, Moist mucous membranes and Atraumatic
Respiratory: Clear
Cardiac: S1/S2 and Regular Rhythm; No Murmur or Rub
GI: Soft, Non Tender, Non Distended and Normal Bowel Sounds
Musculoskeletal: No Edema
Neuro: AO x 3 and Nonfocal/grossly intact,lethargic at times
Psych: Calm
Multidrug use with abuse
Opioid use with abuse and dependance
Suspect benzodiazepine withdrawal; now resolved
Possible opiate withdrawal on admission now on methadone
ativan prn; hold for sedation
Methadone now back to 190 mg daily since patient is much more awake/alert
Patient is interested in going to drug rehab.
Psych signed off
UDS positive for methadone, fentanyl, amphetamine, methamphetamine, benzodiazepine, marijuana
narcan prn
Patient is not in benzodiazepine withdrawal as there are no signs of it. Will change Ativan to oral every 12 hours as needed for anxiety however hold for sedation.
# Anemia; iron deficient
likely 2/2 malnutrition
-Hemoglobin 10.6
-No active bleeding
#left hip/thigh pain
#recent left acetabular fracture, left sup/inf rami fracture/vertebral body compression fracture and scalp laceration. was hospitalized at [facility]
-Underwent ORIF left acetabulum in september 2023
Patient to follow-up with orthopedics outpatient
records requested;never got it
-lidocaine continued
-Tylenol prn for pain
-PT following rec SNF; patient refusing
patient is now WBAT
xray with posttraumatic and post operative changes. No clear acute fracture.
repeat xray 12/17 unchanged from prior
Patient to follow-up with orthopedics upon discharge. Dr. Brady Aquino from [facility]
# Hypokalemia
improved
#DVT Prophylaxis
-Lovenox
#CODE status
-full code
Per caseworker intake, patient needs to be independent for the drug rehab. Patient is claiming that she is independently walking with a walker to the bathroom
BCARES involved
Patient is medically cleared and can be discharged. CM made aware. [facility] want patient to be more independent before accepting. DC planning ongoing. cannot dc home as she is homeless
Anticipated Discharge: 24 - 48 hours
Subjective/Interval History
-
Date of Service: December 19, 2023
May complaints continued right-sided hip and pelvic pain/seems to be taking oral intake well
Objective Data
-
Labs:
Laboratory Results
12/19/23
06:00
WBC Pending
Hgb Pending
Hct Pending
Plt Count Pending
Sodium Pending
Potassium Pending
Chloride Pending
Carbon Dioxide Pending
BUN Pending
Creatinine Pending
Glucose Pending
Calcium Pending
Total Bilirubin Pending
AST Pending
ALT Pending
Alkaline Phosphatase Pending
Vital Signs:
Vital Signs
Temp Pulse Resp BP Pulse Ox
97.8 F 74 15 100/66 98
12/19/23 07:44 12/19/23 07:44 12/19/23 07:44 12/19/23 07:44 12/19/23 07:44
I&O
12/18/23 12/19/23 12/20/23
06:59 06:59 06:59
Intake Total 840 / 840 1800 / 1800
Balance 840 / 840 1800 / 1800
Review of Systems
-
All other systems: Not reviewed unless documented
Physical Exam
-
General: Cachectic
HEENT: Normocephalic
Respiratory: Clear to Auscultation
Cardiac: Regular Rhythm
GI: Soft
Musculoskeletal: Edema, Right Lower Extrem
Skin: Warm
Neuro: Awake
Data Reviewed
-
Total Time Spent with Patient (in minutes): 45
Labs: Labs Reviewed by me (Await today's labs/pelvic x-ray reviewed unchanged from prior)
[2023-12-19 10:33] LABS: % Basophils 0.6 % (0-2); % Eosinophils 6.3 % (0-6); % Immature Granulocytes 0.7 % (0-0.5); % Lymphocytes 35.1 % (20.5-51.1); % Monocytes 8.4 % (1.7-9.3); % Neutrophils 48.9 % (42.2-75.2); Absolute Eosinophils 0.3 10^3/uL (0-0.7); Absolute Lymphocytes 1.9 10^3/uL (1.2-3.4); Absolute Monocytes 0.5 10^3/uL (0.1-0.6); Absolute Neutrophils 2.6 10^3/uL (1.4-6.5); Hematocrit 31.5 % (37.0-47.0); Hemoglobin 10.4 g/dL (12.0-16.0); Mean Corpuscular Hgb 26.5 pg (27.0-31.0); Mean Corpuscular Volume 80.2 fL (81.0-99.0); Mean Platelet Volume 9.5 fL (7.4-10.4); Nucleated Red Blood Cells % 0 %; Platelet Count 326 10^3/uL (130-400); Red Blood Cell Count 3.93 10^6/uL (4.20-5.40); Red Cell Dist. Width 14.8 % (11.5-14.5); White Blood Cell Count 5.4 10^3/uL (4.8-10.8)
[2023-12-19 10:59] LABS: ALT (SGPT) 14 U/L (0-35); AST (SGOT) 23 U/L (14-36); Albumin 3.9 g/dl (3.5-5.0); Alkaline Phosphatase 110 U/L (38-126); Blood Urea Nitrogen 22 mg/dl (7-17); Calcium 9.6 mg/dl (8.4-10.2); Carbon Dioxide 27 mmol/L (22-30); Chloride 100 mmol/L (98-107); Estimated Creatinine Clearance 98 ml/min; Glucose 132 mg/dl (70-99); Potassium 4.3 mmol/L (3.5-5.1); Sodium 139 mmol/L (135-145); Total Bilirubin 0.2 mg/dl (0.2-1.3); Total Protein 8.1 g/dl (6.3-8.2); eGFR > 60.00
[2023-12-19 11:40] VITALS: BP 102/56
[2023-12-19] MEDS: ATIVAN 0.5 MG PO (11:59)
[2023-12-19] MEDS: BENADRYL 25 MG IV ×3 (13:19→23:41)
--- NOTE | 2023-12-19 15:35 | CM ---
Case management following for d/c planning
Julius with [facility] met with pt today
Plan per Julius is [facility] for rehab - clinical information to be sent today by Julius for review
Spoke with pt - pt does not believe she has a rolling walker and would need one for d/c
Plan - Inpatient Drug rehab waiting on acceptance
[2023-12-19 15:38] VITALS: BP 100/48
[2023-12-19] MEDS: MELATONIN 3 MG PO (22:01)
[2023-12-19 23:54] VITALS: BP 102/74
[2023-12-20 07:42] VITALS: BP 100/57
[2023-12-20] MEDS: COLACE 100 MG PO ×2 (07:49→21:02)
[2023-12-20] MEDS: FEOSOL 325 MG PO (07:49)
[2023-12-20] MEDS: MIRALAX 17 GRAMS PO (07:49)
[2023-12-20] MEDS: METHADONE 100 MG/10 ML 190 MG PO (07:50)
[2023-12-20] MEDS: LIDOCAINE 4% PATCH 1 PATCH TOPICAL (07:52)
[2023-12-20] MEDS: BENADRYL 25 MG IV ×3 (07:59→21:02)
--- NOTE | 2023-12-20 08:14 | W.PN.HOSP.TC ---
Today's Communication/Plan
-
Medically stable once disposition to drug rehab obtain
Assessment / Plan
Assessment / Plan
General: Well Developed, Well Nourished and No Apparent Distress
HEENT: NormoCephalic, Moist mucous membranes and Atraumatic
Respiratory: Clear
Cardiac: S1/S2 and Regular Rhythm; No Murmur or Rub
GI: Soft, Non Tender, Non Distended and Normal Bowel Sounds
Musculoskeletal: No Edema
Neuro: AO x 3 and Nonfocal/grossly intact,lethargic at times
Psych: Calm
Multidrug use with abuse
Opioid use with abuse and dependance
Suspect benzodiazepine withdrawal; now resolved
Possible opiate withdrawal on admission now on methadone
ativan prn; hold for sedation
Methadone now back to 190 mg daily since patient is much more awake/alert
Patient is interested in going to drug rehab. Case management working on [facility]/prescription for walker and chart
Psych signed off
UDS positive for methadone, fentanyl, amphetamine, methamphetamine, benzodiazepine, marijuana
narcan prn
Patient is not in benzodiazepine withdrawal as there are no signs of it. Will change Ativan to oral every 12 hours as needed for anxiety however hold for sedation.
# Anemia; iron deficient
likely 2/2 malnutrition
-Hemoglobin 10.6
-No active bleeding
#left hip/thigh pain
#recent left acetabular fracture, left sup/inf rami fracture/vertebral body compression fracture and scalp laceration. was hospitalized at [facility]
-Underwent ORIF left acetabulum in september 2023
Patient to follow-up with orthopedics outpatient
records requested;never got it
-lidocaine continued
-Tylenol prn for pain
-PT following rec SNF; patient refusing
patient is now WBAT
xray with posttraumatic and post operative changes. No clear acute fracture.
repeat xray 12/17 unchanged from prior
Patient to follow-up with orthopedics upon discharge. Dr. Brady Aquino from [facility]
# Hypokalemia
improved
#DVT Prophylaxis
-Lovenox
#CODE status
-full code
Per vocational case manager, patient needs to be independent for the drug rehab. Patient is claiming that she is independently walking with a walker to the bathroom
[facility] involved trying for [facility] awaiting authorization
Patient is medically cleared and can be discharged. CM made aware. [facility] want patient to be more independent before accepting. DC planning ongoing. cannot dc home as she is homeless
Anticipated Discharge: Within 24 hours
Subjective/Interval History
-
Date of Service: December 20, 2023
Is asking for Benadryl for her nerves yesterday and got a couple doses which helped I told her that she can continue this as it would only make her shaking worse eventually.
Objective Data
-
Vital Signs:
Vital Signs
Temp Pulse Resp BP Pulse Ox
98.2 F 82 17 100/57 95
12/20/23 07:42 12/20/23 07:42 12/20/23 07:42 12/20/23 07:42 12/20/23 07:42
I&O
12/19/23 12/20/23 12/21/23
06:59 06:59 06:59
Intake Total 1800 / 1800 780 / 780
Balance 1800 / 1800 780 / 780
Review of Systems
-
History Source: Patient
Constitutional: Reports No Symptoms
EENT: Reports No Symptoms Reported
Respiratory: Reports No Symptoms
Psych: Reports Anxious
Physical Exam
-
General: Appears Chronically Ill
HEENT: Normocephalic
Respiratory: Clear to Auscultation
Cardiac: Regular Rhythm
GI: Soft
Neuro: Awake, Alert and Oriented
Psych: Calm
Data Reviewed
-
Total Time Spent with Patient (in minutes): 34
Labs: Labs Reviewed by me
[2023-12-20 15:25] VITALS: BP 109/70
--- NOTE | 2023-12-20 15:51 | CM ---
Case management following for d/c planning
Chart reviewed
Julius with [facility] following pt for placement
Pt will need a rolling walker when d/c'ed
Plan - Inpatient Drug rehab waiting on acceptance
[2023-12-20] MEDS: MELATONIN 3 MG PO (21:02)
[2023-12-20] MEDS: ATIVAN 0.5 MG PO (21:07)
--- NOTE | 2023-12-21 01:47 | PTCARENOTE ---
Vitals not done because patient refused
[2023-12-21] MEDS: BENADRYL 25 MG IV ×5 (02:19→22:16)
[2023-12-21 07:00] VITALS: BP 105/67
[2023-12-21] MEDS: LIDOCAINE 4% PATCH 1 PATCH TOPICAL (08:20)
[2023-12-21] MEDS: FEOSOL 325 MG PO (08:20)
[2023-12-21] MEDS: COLACE 100 MG PO ×2 (08:20→20:03)
[2023-12-21] MEDS: METHADONE 100 MG/10 ML 190 MG PO (08:21)
[2023-12-21] MEDS: MIRALAX 17 GRAMS PO (08:21)
[2023-12-21 15:00] VITALS: BP 105/54
--- NOTE | 2023-12-21 15:33 | W.PN.HOSP.TC ---
Today's Communication/Plan
-
Physical therapy assessment and treatment.
Pending placement to acute drug rehab
Assessment / Plan
Assessment / Plan
Multidrug use with abuse
Opioid use with abuse and dependance
Suspect benzodiazepine withdrawal; now resolved
Possible opiate withdrawal on admission now on methadone
ativan prn; hold for sedation
Methadone now back to 190 mg daily since patient is much more awake/alert
Patient is interested in going to drug rehab. Case management working on [facility]/prescription for walker and chart
Psych signed off
UDS positive for methadone, fentanyl, amphetamine, methamphetamine, benzodiazepine, marijuana
narcan prn
Patient is not in benzodiazepine withdrawal as there are no signs of it. Will change Ativan to oral every 12 hours as needed for anxiety however hold for sedation.
# Anemia; iron deficient
likely 2/2 malnutrition
-Hemoglobin 10.6
-No active bleeding
#left hip/thigh pain
#recent left acetabular fracture, left sup/inf rami fracture/vertebral body compression fracture and scalp laceration. was hospitalized at [facility]
-Underwent ORIF left acetabulum in september 2023
Patient to follow-up with orthopedics outpatient
records requested;never got it
-lidocaine continued
-Tylenol prn for pain
-PT following rec SNF; patient refusing
patient is now WBAT
xray with posttraumatic and post operative changes. No clear acute fracture.
repeat xray 12/17 unchanged from prior
Patient to follow-up with orthopedics upon discharge. Dr. Brady Aquino from [facility]
# Hypokalemia
improved
#DVT Prophylaxis
-Lovenox
#CODE status
-full code
Per case planner, patient needs to be independent for the drug rehab. Patient is claiming that she is independently walking with a walker to the bathroom
[facility] involved trying for [facility] awaiting authorization
Patient is medically cleared and can be discharged. CM made aware. [facility] want patient to be more independent before accepting. DC planning ongoing. cannot dc home as she is homeless
Anticipated Discharge: 24 - 48 hours
Subjective/Interval History
-
Date of Service: December 21, 2023
Objective Data
-
Vital Signs:
Vital Signs
Temp Pulse Resp BP Pulse Ox
97.7 F 76 18 105/67 98
12/21/23 07:00 12/21/23 07:00 12/21/23 07:00 12/21/23 07:00 12/21/23 07:00
I&O
12/20/23 12/21/23 12/22/23
06:59 06:59 06:59
Intake Total 780 / 780 840 / 840
Balance 780 / 780 840 / 840
Physical Exam
-
General: Well Developed and No Apparent Distress
HEENT: Normocephalic, Atraumatic and Moist Mucous Membranes
Respiratory: Clear to Auscultation
Cardiac: Regular Rhythm and S1/S2; Negative Murmur, Rub or Gallop
GI: Soft, Nontender, Nondistended and Normal Bowel Sounds; Negative Organomegaly
Rectal: Deferred by Provider
Musculoskeletal: No Clubbing, No Cyanosis and No Edema
Skin: Negative Rash
Neuro: Nonfocal/Grossly Intact
[2023-12-21 16:17] VITALS: BP 105/54
[2023-12-21] MEDS: ATIVAN 0.5 MG PO (20:03)
[2023-12-21] MEDS: MELATONIN 3 MG PO (22:16)
[2023-12-21 23:00] VITALS: BP 106/63
[2023-12-22] MEDS: BENADRYL 25 MG IV ×4 (02:20→20:10)
[2023-12-22 07:00] VITALS: BP 86/56
[2023-12-22] MEDS: MIRALAX 17 GRAMS PO (08:17)
[2023-12-22] MEDS: LIDOCAINE 4% PATCH 1 PATCH TOPICAL (08:17)
[2023-12-22] MEDS: METHADONE 100 MG/10 ML 190 MG PO (08:17)
[2023-12-22] MEDS: COLACE 100 MG PO ×2 (08:18→20:10)
[2023-12-22] MEDS: FEOSOL 325 MG PO (08:18)
[2023-12-22 11:15] VITALS: BP 103/58
--- NOTE | 2023-12-22 11:36 | W.PN.HOSP.TC ---
Today's Communication/Plan
-
change IV benadryl to oral
d/c planning
checking labs in AM
Assessment / Plan
Assessment / Plan
Multidrug use with abuse
Opioid use with abuse and dependance
Suspect benzodiazepine withdrawal; now resolved
Possible opiate withdrawal on admission now on methadone
ativan prn; hold for sedation
Methadone now back to 190 mg daily since patient is much more awake/alert
Patient is interested in going to drug rehab. Case management working on [facility] rehab/prescription for walker and chart
Psych signed off
UDS positive for methadone, fentanyl, amphetamine, methamphetamine, benzodiazepine, marijuana
narcan prn
Patient is NOT CURRENTLY in benzodiazepine withdrawal as there are no signs of it. Will change Ativan to oral every 12 hours as needed for anxiety however hold for sedation--pt still on IV Benadryl Q4H for anxiety--will change to oral q4Hprn first
then would drop to Q6Hprn
hypotensive--BP low but nursing says rises every day around 11AM?--check cortisol, may need Cosyntropin STIM test if varies by diurnal times, of course, could be due to IV benadryl, methadone, etc.....stopping IV benadryl.....
# Anemia; iron deficient
likely 2/2 malnutrition
-Hemoglobin 10.6
-No active bleeding
#left hip/thigh pain
#recent left acetabular fracture, left sup/inf rami fracture/vertebral body compression fracture and scalp laceration. was hospitalized at [facility]
-Underwent ORIF left acetabulum in september 2023
Patient to follow-up with orthopedics outpatient
records requested;never got it
-lidocaine continued
-Tylenol prn for pain
-PT following rec SNF; patient refusing
patient is now WBAT
xray with posttraumatic and post operative changes. No clear acute fracture.
repeat xray 12/17 unchanged from prior
Patient to follow-up with orthopedics upon discharge. Dr. Brady Aquino from [facility]
# Hypokalemia
improved
#DVT Prophylaxis
-Lovenox
#CODE status
-full code
Per case management coordinator, patient needs to be independent for the drug rehab. Patient is claiming that she is independently walking with a walker to the bathroom
[facility] involved trying for [facility] drug rehab awaiting authorization
Patient is medically cleared and can be discharged. CM made aware. [facility] want patient to be more independent before accepting. DC planning ongoing. cannot dc home as she is homeless
Anticipated Discharge: > 48 hours
Subjective/Interval History
-
Date of Service: December 22, 2023
pt c/o anxiety--waiting for placement
Objective Data
-
Vital Signs:
max temp for 24 hours
12/21/23
15:00
Temp 98.9 F
Vital Signs
Temp Pulse Resp BP Pulse Ox
98.0 F 78 18 86/56 99
12/22/23 07:00 12/22/23 07:00 12/22/23 07:00 12/22/23 07:00 12/22/23 07:00
I&O
12/21/23 12/22/23 12/23/23
06:59 06:59 06:59
Intake Total 840 / 840 2610 / 2610
Balance 840 / 840 2610 / 2610
Review of Systems
-
All other systems: Reviewed and negative
Psych: Reports Anxious
Physical Exam
-
General: Well Developed, Well Nourished and Appears Chronically Ill
HEENT: Normocephalic and Atraumatic; Negative Oxygen
Respiratory: Clear to Auscultation; Negative Wheezes or Rhonchi
Cardiac: Regular Rhythm and S1/S2; Negative Murmur or Tachycardic
GI: Soft, Nontender, Nondistended and Normal Bowel Sounds
Musculoskeletal: No Clubbing, No Cyanosis and No Edema
Neuro: Awake
[2023-12-22 15:00] VITALS: BP 95/61
[2023-12-22 23:00] VITALS: BP 96/60
[2023-12-23] MEDS: BENADRYL 25 MG IV ×4 (00:06→12:24)
[2023-12-23] MEDS: MELATONIN 3 MG PO (00:06)
[2023-12-23 07:18] VITALS: BP 102/64
[2023-12-23] MEDS: LIDOCAINE 4% PATCH 1 PATCH TOPICAL (08:15)
[2023-12-23] MEDS: MIRALAX 17 GRAMS PO (08:15)
[2023-12-23] MEDS: COLACE 100 MG PO (08:16)
[2023-12-23] MEDS: FEOSOL 325 MG PO (08:16)
[2023-12-23] MEDS: METHADONE 100 MG/10 ML 190 MG PO (08:17)
--- NOTE | 2023-12-23 10:35 | CM ---
Addendum entered by Ai Juan 12/23/23 13:56:
Spke with Julius from [facility] - pt accepted
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
Dr Mcarthur made aware and will discharge
Plan - transfer to inpatient drug rehab- [facility]
Original Note:
Case management following for d/c planning
Spoke with Julius from [facility] - bed available at [facility]
Pt to have phone assessment to determine acceptance - Julius will return call with determination
--- NOTE | 2023-12-23 14:03 | W.DS.TRANS ---
DC Summary - [employer]
-
Discharge Instructions:
Discharge Diagnosis/Procedures Multidrug use with abuse
Opioid use with dependence
Opioid and benzodiazepine withdrawal
recent left acetabular fracture, left sup/inf
rami fracture/vertebral body compression
fracture
Diet As tolerated
Activity As tolerated
Driving Restrictions As prior to admission
Bathing Restrictions None
Instructions:
Stand-Alone Forms:
Changes to Home Medications: Yes
Discharge Medications:
DC Medications w/original date entered in [employer]
methadone 10 mg/mL injection solution 190 mg SC DAILY opioid use disorder 12/09/23
acetaminophen 325 mg tablet 650 mg (2 x 325 mg) PO Q4HPRN PRN mild pain/GALDAMEZ/temp> 100.4F #0 tabs 12/18/23
docusate sodium 100 mg capsule 100 mg PO BID #30 caps 12/18/23
ferrous sulfate 325 mg (65 mg iron) tablet (FeroSul) 325 mg PO DAILY #30 tabs 12/18/23
lidocaine 4 % topical patch 1 patch topical DAILY #30 ea 12/18/23
lorazepam 0.5 mg tablet 0.5 mg PO [id number] PRN anxiety #6 tabs 12/18/23
naloxone 4 mg/actuation nasal spray (Narcan) 1 spray intranasal Q3M PRN opioid overdose #2 ea 12/18/23
polyethylene glycol 3350 17 gram oral powder packet (HealthyLax) 17 g PO DAILY #14 ea 12/23/23
Home Medication Changes
Methadone initiated.
Pending Results: No
[2023-12-23 14:55] VITALS: BP 106/51
== END 2023-12-23 15:19 | disposition other institution (70) | DRG 897 ==
LOC: 3 WEST ACU 14:37
PROVIDERS: Registered Nurse; ADMITTING PHYSICIAN Internal Medicine; ATTENDING PHYSICIAN Internal Medicine; EMERGENCY PHYSICIAN Emergency Medicine; OTHER PHYSICIAN Psychiatry & Neurology Psychiatry
DX: F13.939 Sedative, hypnotic or anxiolytic use, unspecified with withdrawal, unspecified (principal); S32.592A Other specified fracture of left pubis, initial encounter for closed fracture; E46 Unspecified protein-calorie malnutrition; Z59.00 Homelessness unspecified; F11.23 Opioid dependence with withdrawal; F17.200 Nicotine dependence, unspecified, uncomplicated; E87.6 Hypokalemia; D63.8 Anemia in other chronic diseases classified elsewhere; Z75.1 Person awaiting admission to adequate facility elsewhere; F41.9 Anxiety disorder, unspecified; Z68.22 Body mass index [BMI] 22.0-22.9, adult
CPT/HCPCS: 72190; 80053; 80306; 80307; 82248; 82607; 82728; 82746; 83540; 83550; 84703; 85025; 85027; 87070; 93005; 97116; 97163; 97167; 97530; 97535; 99285; 99406